=== PATIENT | male | born 1950 | race Caucasian/White ===

== ENCOUNTER 2021-05-30 17:25 | Inpatient (IN) | payer BC ==
[2021-05-30] MEDS ORDERED: Sodium Chloride 0.9% 10 ML Syringe FLUSH PRN (17:28)
[2021-05-30] MEDS ORDERED: Sodium Chloride 0.9% 2.5 ML Syringe FLUSH PRN (17:28)
[2021-05-30] MEDS ORDERED: Dexamethasone 10 MG/ML SDV IVPUSH ONE (17:30)
--- NOTE | 2021-05-30 17:34 | EDM.PDOC ---
ED HPI GENERAL MEDICAL PROBLEM - General Stated Complaint: SHORTNESS OF BREATH Time Seen by Provider: 05/30/21 17:28 Source of Information: Reports: Patient, EMS History Limitations: Reports: Respiratory Distress - History of Present Illness INITIAL COMMENTS - FREE TEXT/NARRATIVE: 71-year-old male known COVID-19 infection diagnosed on May 22 presents for worsening shortness of breath. History is limited secondary to patient's clinical condition. History is primarily from EMS. EMS was called as patient was having worsening shortness of breath and looking bad per his . On their arrival patient was with O2 sats in the 50s and unable to speak. 15 L nonrebreather mask was applied and patient's O2 sats improved to the high 80s and he was able to talk in short sentences. Patient actually denies chest pain or shortness of breath. He states he feels tired. He is alert and oriented. called and was able to provide some additional history. She notes that patient has a past medical history of prediabetes, hypertension, hyperlipidemia. She notes that they have both been struggling with Covid for the last week. Today patient is complaining of worsening generalized weakness and was having difficulty standing. After using the restroom he became incredibly weak with difficulty breathing prompting her to call EMS. - Related Data Allergies Allergy/AdvReac Type Severity Reaction Status Date / Time No Known Allergies Allergy Verified 05/30/21 17:33 Home Meds: Home Meds Aspirin [[place]] 81 mg PO DAILY 05/30/21 [History] Empagliflozin [Jardiance] 25 mg PO DAILY 05/30/21 [History] Lisinopril/Hydrochlorothiazide [Lisinopril-HCTZ 10-12.5 MG] 0.5 tab PO DAILY 05/30/21 [History] Naproxen 250 mg PO Q6H 05/30/21 [History] Pioglitazone [Actos] 30 mg PO DAILY 05/30/21 [History] atorvaSTATin [Lipitor] 40 mg PO DAILY 05/30/21 [History] metFORMIN [Glucophage XR] 100 mg PO DAILY 05/30/21 [History] ED ROS GENERAL - Review of Systems Review Of Systems: Comprehensive ROS is negative, except as noted in HPI. ED EXAM, GENERAL - Physical Exam Exam: See Below Exam Limited By: No Limitations General Appearance: Alert, WD/WN, Other (moderate respiratory distress) Ears: Hearing Grossly Normal Throat/Mouth: Normal Voice, No Airway Compromise Head: Atraumatic, Normocephalic Neck: Normal Inspection Respiratory/Chest: Lungs Clear, Normal Breath Sounds, Respiratory Distress Cardiovascular: Normal Peripheral Pulses, Regular Rate, Rhythm GI/Abdominal: Soft, Non-Tender Extremities: Normal Inspection Neurological: Alert, Oriented Psychiatric: Normal Affect, Normal Mood Skin Exam: Warm, Dry, Intact, Normal Color #1 Interpretation EKG Date: 05/30/21 Time: 17:44 Rhythm: NSR Rate (Beats/Min): 97 [place]: Normal P-Wave: Present QRS: Normal ST-T: Normal QT: Normal KS/PQ Interval: 178 Comparison: NA - No Prior EKG EKG Interpretation Comments: no acute ischemic changes Course - Vital Signs Last Recorded V/S: Last Vital Signs Temp 100.6 F 05/30/21 19:23 Pulse 93 05/30/21 19:23 Resp 20 05/30/21 19:23 BP 138/88 05/30/21 19:23 Pulse Ox 95 05/30/21 19:23 - Orders/Labs/Meds Orders: Active Orders 24 hr Category Date Time Status Cardiac Monitoring [RC] . DIRECTED Care 05/30/21 17:29 Active Pulse Oximetry [RC] ASDIRECTED Care 05/30/21 17:29 Active RT BiPAP/CPAP [RC] ASDIRECTED Care 05/30/21 18:07 Active CTA Chest W WO Contrast [Ang Chest] [CT] Stat Exams 05/30/21 18:57 Ordered CULTURE BLOOD [BC] Stat Lab 05/30/21 17:28 Received CULTURE BLOOD [BC] Stat Lab 05/30/21 17:48 Received REFLEX LACTIC ACID YES OR NO [CHEM] Routine Lab 05/30/21 18:20 Received UA W/SAM RFLX IF INDICATED [URIN] Stat Lab 05/30/21 17:29 Ordered Azithromycin [Zithromax] 500 mg Med 05/30/21 18:00 Active Sodium Chloride 0.9% [Normal Saline (AdvBag)] 250 ml IV ONETIME Enoxaparin [Lovenox] Med 05/30/21 19:37 Once 150 mg SUBCUT ONETIME ONE Sodium Chloride 0.9% [Normal Saline] 1,000 ml Med 05/30/21 19:00 Active IV ONETIME Sodium Chloride 0.9% [Saline Flush] Med 05/30/21 17:28 Active 10 ml FLUSH ASDIRECTED PRN Sodium Chloride 0.9% [Saline Flush] Med 05/30/21 17:28 Active 2.5 ml FLUSH ASDIRECTED PRN Blood Culture x2 Reflex Set [OM.PC] Stat Ot 05/30/21 17:30 Ordered Saline Lock Insert [OM.PC] Stat Ot 05/30/21 17:28 Ordered Medication Orders Azithromycin 500 mg/ Sodium (Chloride) 250 mls @ 250 mls/hr IV ONETIME JUANITO Last Admin: 05/30/21 19:36 Dose: 250 mls/hr Documented by: SHELBY Sodium Chloride (Normal Saline) 1,000 mls @ 250 mls/hr IV ONETIME ONE Stop: 05/30/21 22:59 Last Admin: 05/30/21 19:36 Dose: 250 mls/hr Documented by: SHELBY Sodium Chloride (Sodium Chloride 0.9% 10 Ml Syringe) 10 ml FLUSH ASDIRECTED PRN PRN Reason: Keep Vein Open Last Admin: 05/30/21 17:39 Dose: 10 ml Documented by: CHEY Sodium Chloride (Sodium Chloride 0.9% 2.5 Ml Syringe) 2.5 ml FLUSH ASDIRECTED PRN PRN Reason: Keep Vein Open Last Admin: 05/30/21 17:39 Dose: 2.5 ml Documented by: CHEY Labs: Laboratory Tests 05/30/21 05/30/21 05/30/21 Range/Units 17:27 17:28 17:28 WBC 15.39 H (4.0-11.0) K/uL RBC 4.89 (4.50-5.90) M/uL Hgb 14.9 (13.0-17.0) g/dL Hct 41.9 (38.0-50.0) % MCV 85.7 (80.0-98.0) fL MCH 30.5 (27.0-32.0) pg MCHC 35.6 (31.0-37.0) g/dL RDW Std Deviation 40.8 (28.0-62.0) fl RDW Coeff of Oscar 13 (11.0-15.0) % Plt Count 270 (150-400) K/uL MPV 10.60 (7.40-12.00) fL Add Manual Diff YES Neutrophils % (Manual) 80 (48.0-80.0) % Band Neutrophils % 12 % Lymphocytes % (Manual) 4 L (16.0-40.0) % Monocytes % (Manual) 4 (0.0-15.0) % Nucleated RBC % 0.3 /100WBC Absolute Seg Neuts 12.3 H (1.4-5.7) Band Neutrophils # 1.8 Lymphocytes # (Manual) 0.6 (0.6-2.4) Monocytes # (Manual) 0.6 (0.0-0.8) Nucleated RBCs # 0 K/uL INR APTT (18.6-31.3) SEC D-Dimer, Quantitative (0.0-0.50) mg/L FEU ABG pH 7.43 (7.35-7.45) ABG pCO2 19 L (35-45) mmHG ABG pO2 54 L (80-105) mmHG ABG HCO3 13 L (22-26) mEq/L ABG Total CO2 13 L (23-27) mmol/L ABG Base Excess -9.0 L (-2.0-3.0) Sodium (136-148) mmol/L Potassium (3.5-5.1) mmol/L Chloride (98-107) mmol/L Carbon Dioxide (21.0-32.0) mmol/L BUN (7.0-18.0) mg/dL Creatinine (0.8-1.3) mg/dL Est Cr Clr Drug Dosing Estimated GFR (MDRD) ml/min Glucose (74-106) mg/dL Lactic Acid 3.2 H* (0.4-2.0) mmol/L Calcium (8.5-10.1) mg/dL Magnesium (1.8-2.4) mg/dL Total Bilirubin (0.2-1.0) mg/dL AST (15-37) IU/L ALT (14-63) IU/L Alkaline Phosphatase (46-116) U/L Troponin I (0.000-0.056) ng/mL C-Reactive Protein (0.00-0.90) mg/dL B-Natriuretic Peptide (<100) PG/ML Total Protein (6.4-8.2) g/dL Albumin (3.4-5.0) g/dL Globulin (2.6-4.0) g/dL Albumin/Globulin Ratio (0.9-1.6) 05/30/21 05/30/21 05/30/21 Range/Units 17:28 17:28 17:28 WBC (4.0-11.0) K/uL RBC (4.50-5.90) M/uL Hgb (13.0-17.0) g/dL Hct (38.0-50.0) % MCV (80.0-98.0) fL MCH (27.0-32.0) pg MCHC (31.0-37.0) g/dL RDW Std Deviation (28.0-62.0) fl RDW Coeff of Oscar (11.0-15.0) % Plt Count (150-400) K/uL MPV (7.40-12.00) fL Add Manual Diff Neutrophils % (Manual) (48.0-80.0) % Band Neutrophils % % Lymphocytes % (Manual) (16.0-40.0) % Monocytes % (Manual) (0.0-15.0) % Nucleated RBC % /100WBC Absolute Seg Neuts (1.4-5.7) Band Neutrophils # Lymphocytes # (Manual) (0.6-2.4) Monocytes # (Manual) (0.0-0.8) Nucleated RBCs # K/uL INR 1.19 APTT 23.4 (18.6-31.3) SEC D-Dimer, Quantitative 63.00 H (0.0-0.50) mg/L FEU ABG pH (7.35-7.45) ABG pCO2 (35-45) mmHG ABG pO2 (80-105) mmHG ABG HCO3 (22-26) mEq/L ABG Total CO2 (23-27) mmol/L ABG Base Excess (-2.0-3.0) Sodium 132 L (136-148) mmol/L Potassium 3.5 (3.5-5.1) mmol/L Chloride 89 L (98-107) mmol/L Carbon Dioxide 17.0 L (21.0-32.0) mmol/L BUN 46 H (7.0-18.0) mg/dL Creatinine 1.2 (0.8-1.3) mg/dL Est Cr Clr Drug Dosing TNP Estimated GFR (MDRD) 59.7 ml/min Glucose 252 H (74-106) mg/dL Lactic Acid (0.4-2.0) mmol/L Calcium 9.0 (8.5-10.1) mg/dL Magnesium 2.9 H (1.8-2.4) mg/dL Total Bilirubin 0.7 (0.2-1.0) mg/dL AST 107 H (15-37) IU/L ALT 79 H (14-63) IU/L Alkaline Phosphatase 133 H (46-116) U/L Troponin I < 0.050 (0.000-0.056) ng/mL C-Reactive Protein 10.60 H (0.00-0.90) mg/dL B-Natriuretic Peptide 72 (<100) PG/ML Total Protein 7.4 (6.4-8.2) g/dL Albumin 3.0 L (3.4-5.0) g/dL Globulin 4.4 H (2.6-4.0) g/dL Albumin/Globulin Ratio 0.7 L (0.9-1.6) Meds: Medications Generic Name Dose Route Start Last Admin Trade Name Freq PRN Reason Stop Dose Admin Azithromycin 500 mg/ Sodium 250 mls @ 250 mls/hr 05/30/21 18:00 05/30/21 19:36 Chloride IV 250 mls/hr ONETIME JUANITO Administration Sodium Chloride 1,000 mls @ 250 mls/hr 05/30/21 19:00 05/30/21 19:36 Normal Saline IV 05/30/21 22:59 250 mls/hr ONETIME ONE Administration Sodium Chloride 10 ml 05/30/21 17:28 05/30/21 17:39 Sodium Chloride 0.9% 10 Ml Syringe FLUSH 10 ml ASDIRECTED PRN Administration Keep Vein Open Sodium Chloride 2.5 ml 05/30/21 17:28 05/30/21 17:39 Sodium Chloride 0.9% 2.5 Ml Syringe FLUSH 2.5 ml ASDIRECTED PRN Administration Keep Vein Open Discontinued Medications Generic Name Dose Route Start Last Admin Trade Name Freq PRN Reason Stop Dose Admin Dexamethasone 6 mg 05/30/21 17:30 05/30/21 17:37 Dexamethasone 10 Mg/Ml Sdv IVPUSH 05/30/21 17:31 6 mg ONETIME ONE Administration Ceftriaxone Sodium/Dextrose 1 50 mls @ 100 mls/hr 05/30/21 17:59 05/30/21 18:34 gm/ Premix IV 05/30/21 18:28 100 mls/hr ONETIME ONE Administration - Re-Assessments/Exams Free Text/Narrative Re-Assessment/Exam: 05/30/21 17:33 Patient presents with hypoxic respiratory failure in setting of known Covid infection. Will get extensive labs and chest x-ray. An ABG was drawn while patient was on 15 L nonrebreather mask. Patient's O2 sats are 80 to 88% on the nonrebreather. Will start patient on BiPAP. Will give Decadron. 05/30/21 17:51 Patient is looking better on BiPAP; he tolerates it well. We are reaching out to his to try and gather more history. When asked about PMHx, patient states he takes "a lot of pills" but doesn't know what pills or what they're for. 05/30/21 18:00 Labs revealed leukocytosis to 15. Will give ceftriaxone and azithromycin for potential bacterial superinfection. 05/30/21 19:37 Labs reveal leukocytosis, mild YELENA, significantly elevated D-dimer, mild hyponatremia. Patient is not stable enough to tolerate CT imaging as he is requiring BiPAP to maintain normal oxygenation. We will give him a therapeutic dose of Lovenox. I did speak with the hospitalist who agrees to admit patient under her service to ICU level care. Departure - Departure Time of Disposition: 19:38 Disposition: Admitted As Inpatient 66 Condition: Critical Clinical Impression: COVID - Discharge Information Critical Care Note - Critical Care Note Total Time (mins): 40 Sepsis Event Note (ED) - Focused Exam Vital Signs: Vital Signs Temp Pulse Resp BP Pulse Ox 05/30/21 19:23 100.6 F 93 20 138/88 95 05/30/21 17:34 105 H 18 143/86 H 84 L - My Orders Last 24 Hours: My Active Orders 05/30/21 17:28 CULTURE BLOOD [BC] Stat Sodium Chloride 0.9% [Saline Flush] 10 ml FLUSH ASDIRECTED PRN Sodium Chloride 0.9% [Saline Flush] 2.5 ml FLUSH ASDIRECTED PRN Saline Lock Insert [OM.PC] Stat 05/30/21 17:29 Cardiac Monitoring [RC] . DIRECTED Pulse Oximetry [RC] ASDIRECTED UA W/SAM RFLX IF INDICATED [URIN] Stat 05/30/21 17:30 Blood Culture x2 Reflex Set [OM.PC] Stat 05/30/21 17:48 CULTURE BLOOD [BC] Stat 05/30/21 18:00 Azithromycin [Zithromax] 500 mg Sodium Chloride 0.9% [Normal Saline (AdvBag)] 250 ml IV ONETIME 05/30/21 18:07 RT BiPAP/CPAP [RC] ASDIRECTED 05/30/21 18:20 REFLEX LACTIC ACID YES OR NO [CHEM] Routine 05/30/21 18:57 CTA Chest W WO Contrast [Ang Chest] [CT] Stat 05/30/21 19:00 Sodium Chloride 0.9% [Normal Saline] 1,000 ml IV ONETIME 05/30/21 19:37 Enoxaparin [Lovenox] 150 mg SUBCUT ONETIME ONE - Assessment/Plan Last 24 Hours: My Active Orders 05/30/21 17:28 CULTURE BLOOD [BC] Stat Sodium Chloride 0.9% [Saline Flush] 10 ml FLUSH ASDIRECTED PRN Sodium Chloride 0.9% [Saline Flush] 2.5 ml FLUSH ASDIRECTED PRN Saline Lock Insert [OM.PC] Stat 05/30/21 17:29 Cardiac Monitoring [RC] . DIRECTED Pulse Oximetry [RC] ASDIRECTED UA W/SAM RFLX IF INDICATED [URIN] Stat 05/30/21 17:30 Blood Culture x2 Reflex Set [OM.PC] Stat 05/30/21 17:48 CULTURE BLOOD [BC] Stat 05/30/21 18:00 Azithromycin [Zithromax] 500 mg Sodium Chloride 0.9% [Normal Saline (AdvBag)] 250 ml IV ONETIME 05/30/21 18:07 RT BiPAP/CPAP [RC] ASDIRECTED 05/30/21 18:20 REFLEX LACTIC ACID YES OR NO [CHEM] Routine 05/30/21 18:57 CTA Chest W WO Contrast [Ang Chest] [CT] Stat 05/30/21 19:00 Sodium Chloride 0.9% [Normal Saline] 1,000 ml IV ONETIME 05/30/21 19:37 Enoxaparin [Lovenox] 150 mg SUBCUT ONETIME ONE
[2021-05-30] MEDS ORDERED: cefTRIAXone 1 GM in Premix Bag 1 BAG IV ONE (17:59)
[2021-05-30] MEDS ORDERED: Azithromycin 500 MG in Sodium Chloride 0.9% 250 ML IV SCH (18:00)
[2021-05-30 18:15] LABS: BLOOD UREA NITROGEN,BUN 46 mg/dL (7.0-18.0); CHLORIDE,CL 89 mmol/L (98-107); GLUCOSE RANDOM 252 mg/dL (74-106); POTASSIUM,K 3.5 mmol/L (3.5-5.1); SODIUM,NA 132 mmol/L (136-148)
--- NOTE | 2021-05-30 18:25 | CR ---
INDICATION: COVID-19. Hypoxic TECHNIQUE: Chest radiograph 1 view COMPARISON: None FINDINGS: The sensitivity and specificity of the exam are moderately limited by the patient`s body habitus. Mediastinum: The mediastinum is normal in appearance. Severe cardiac enlargement is noted. Lung: Mild perihilar ground-glass opacities are noted bilaterally. No sign of pleural effusion seen. No pneumothorax is identified. Bone and Soft tissue: Unremarkable for age. IMPRESSIONS: 1. Severe cardiac enlargement is noted. 2. Mild perihilar ground-glass opacities are noted bilaterally. Findings may be due to COVID-19 infection or pulmonary edema. Dictated by Huan Alejandro MD @ 05/30/2021 6:23:22 PM Dictated by: Huan Alejandro MD @ 05/30/2021 18:23:28 (Electronically Signed)
[2021-05-30] MEDS ORDERED: Sodium Chloride 0.9% 1,000 ML IV ONE (19:00)
[2021-05-30] MEDS ORDERED: Enoxaparin 150 MG/1 ML Syringe SUBCUT ONE (19:37)
[2021-05-30] MEDS ORDERED: Ondansetron 4 MG/2 ML SDV IVPUSH PRN (20:25)
[2021-05-30] MEDS ORDERED: REMDESIVIR 200 MG in Sodium Chloride 0.9% 250 ML IV ONE (20:33)
[2021-05-30] MEDS ORDERED: Glucagon,Human Recombinant 1 MG Vial IM PRN (20:36)
[2021-05-30] MEDS ORDERED: 50% Dextrose in Water 50 ML Syringe IVPUSH PRN (20:36)
--- NOTE | 2021-05-30 20:41 | PCM.HP.2 ---
H&P History of Present Illness - General Date of Service: 05/30/21 Admit Problem/Dx: Admission Diagnosis/Problem Admission Diagnosis/Problem Hypoxia - History of Present Illness Initial Comments - Free Text/Narative: 71-year-old male known COVID-19 infection diagnosed on May 22 presents for worsening shortness of breath. patient has a past medical history of prediabetes, hypertension, hyperlipidemia. EMS was called as patient was having worsening shortness of breath and looking bad per his . On their arrival patient was with O2 sats in the 50s and unable to speak. 15 L nonrebreather mask was applied and patient's O2 sats improved to the high 80s and he was able to talk in short sentences. Denied chest pain. In the ER patient was started on 15 L nonrebreather and sats were between 80 to 88% on nonrebreather, patient was started on BiPAP which improved his saturation. Chest x-ray was obtained which showed severe cardiac enlargement, mild perihilar groundglass opacities noted bilaterally findings may be due to COVID-19 infection or pulmonary edema.laas Patient was given Decadron in the ER and also started on IV antibiotics for suspected bacterial pneumonia superimposed on Covid pneumonia. Lab work revealed leukocytosis of 15, mild YELENA, significantly elevated D-dimer and mild hyponatremia, CTA was not obtained as patient was not stable enough for CT and patient could not be weaned off to high flow to obtain imaging safely. Patient was given therapeutic dose of Lovenox and admitted to the ICU for further care. During my encounter patient was getting very anxious and claustrophobic with BiPAP, so settings were switched to CPAP patient still very anxious with the mask on states he feels very claustrophobic. - Related Data Allergies/Adverse Reactions: Allergies Allergy/AdvReac Type Severity Reaction Status Date / Time No Known Allergies Allergy Verified 05/30/21 17:33 Home Medications: Home Meds Aspirin [[place]] 81 mg PO DAILY 05/30/21 [History] Empagliflozin [Jardiance] 25 mg PO DAILY 05/30/21 [History] Lisinopril/Hydrochlorothiazide [Lisinopril-HCTZ 10-12.5 MG] 0.5 tab PO DAILY 05/30/21 [History] Naproxen 250 mg PO Q6H 05/30/21 [History] Pioglitazone [Actos] 30 mg PO DAILY 05/30/21 [History] atorvaSTATin [Lipitor] 40 mg PO DAILY 05/30/21 [History] metFORMIN [Glucophage XR] 100 mg PO DAILY 05/30/21 [History] Past Medical History - Infectious Disease History Infectious Disease History: Reports: None Social & Family History - Tobacco Use Tobacco Use Status *Q: Unknown Ever Used Tobacco H&P Review of Systems - Review of Systems: Review Of Systems: See Below General: Reports: Fever, Chills, Malaise Pulmonary: Reports: Shortness of Breath. Denies: Wheezing, Pleuritic Chest Pain Cardiovascular: Reports: Dyspnea on Exertion. Denies: Chest Pain Gastrointestinal: Reports: Anorexia, Decreased Appetite, Nausea. Denies: Abdominal Pain, Black Stool, Bloody Stool, Constipation, Diarrhea Genitourinary: Denies: Dysuria, Frequency, Burning Musculoskeletal: Denies: Neck Pain, Shoulder Pain, Arm Pain Skin: Denies: Cyanosis, Jaundice, Mottled Psychiatric: Reports: Anxiety. Denies: Confusion, Depression, Mood Lability Exam - Exam Exam: See Below - Vital Signs Vital Signs: Last Vital Signs Temp 38.1 C 05/30/21 19:23 Pulse 93 05/30/21 19:23 Resp 20 05/30/21 19:23 BP 138/88 05/30/21 19:23 Pulse Ox 95 05/30/21 19:23 Weight: 91.6 kg - Exam Quality Assessment: Supplemental Oxygen Neck: Supple, Trachea Midline Lungs: Normal Respiratory Effort, Decreased Breath Sounds, Crackles, Rales, Wheezing Cardiovascular: Regular Rate, Regular Rhythm, Normal S1, Normal S2 GI/Abdominal Exam: Normal Bowel Sounds, Soft, Non-Tender - Patient Data Lab Results Last 24 hrs: Laboratory Results - last 24 hr 05/30/21 05/30/21 05/30/21 Range/Units 17:27 17:28 17:28 WBC 15.39 H (4.0-11.0) K/uL RBC 4.89 (4.50-5.90) M/uL Hgb 14.9 (13.0-17.0) g/dL Hct 41.9 (38.0-50.0) % MCV 85.7 (80.0-98.0) fL MCH 30.5 (27.0-32.0) pg MCHC 35.6 (31.0-37.0) g/dL RDW Std Deviation 40.8 (28.0-62.0) fl RDW Coeff of Oscar 13 (11.0-15.0) % Plt Count 270 (150-400) K/uL MPV 10.60 (7.40-12.00) fL Add Manual Diff YES Neutrophils % (Manual) 80 (48.0-80.0) % Band Neutrophils % 12 % Lymphocytes % (Manual) 4 L (16.0-40.0) % Monocytes % (Manual) 4 (0.0-15.0) % Nucleated RBC % 0.3 /100WBC Absolute Seg Neuts 12.3 H (1.4-5.7) Band Neutrophils # 1.8 Lymphocytes # (Manual) 0.6 (0.6-2.4) Monocytes # (Manual) 0.6 (0.0-0.8) Nucleated RBCs # 0 K/uL INR APTT (18.6-31.3) SEC D-Dimer, Quantitative (0.0-0.50) mg/L FEU ABG pH 7.43 (7.35-7.45) ABG pCO2 19 L (35-45) mmHG ABG pO2 54 L (80-105) mmHG ABG HCO3 13 L (22-26) mEq/L ABG Total CO2 13 L (23-27) mmol/L ABG Base Excess -9.0 L (-2.0-3.0) Sodium (136-148) mmol/L Potassium (3.5-5.1) mmol/L Chloride (98-107) mmol/L Carbon Dioxide (21.0-32.0) mmol/L BUN (7.0-18.0) mg/dL Creatinine (0.8-1.3) mg/dL Est Cr Clr Drug Dosing Estimated GFR (MDRD) ml/min Glucose (74-106) mg/dL Lactic Acid 3.2 H* (0.4-2.0) mmol/L Calcium (8.5-10.1) mg/dL Magnesium (1.8-2.4) mg/dL Total Bilirubin (0.2-1.0) mg/dL AST (15-37) IU/L ALT (14-63) IU/L Alkaline Phosphatase (46-116) U/L Troponin I (0.000-0.056) ng/mL C-Reactive Protein (0.00-0.90) mg/dL B-Natriuretic Peptide (<100) PG/ML Total Protein (6.4-8.2) g/dL Albumin (3.4-5.0) g/dL Globulin (2.6-4.0) g/dL Albumin/Globulin Ratio (0.9-1.6) Urine Color Urine Appearance Urine pH (5.0-8.0) Ur Specific [place] (1.001-1.035) Urine Protein (NEGATIVE) mg/dL Urine Glucose (UA) (NEGATIVE) mg/dL Urine Ketones (NEGATIVE) mg/dL Urine Occult Blood (NEGATIVE) Urine Nitrite (NEGATIVE) Urine Bilirubin (NEGATIVE) Urine Ictotest Urine Urobilinogen (<2.0) EU/dL Ur Leukocyte Esterase (NEGATIVE) Urine RBC (0-2/HPF) Urine WBC (0-5/HPF) Ur Epithelial Cells (NONE-FEW) Urine Bacteria (NEGATIVE) 05/30/21 05/30/21 05/30/21 Range/Units 17:28 17:28 17:28 WBC (4.0-11.0) K/uL RBC (4.50-5.90) M/uL Hgb (13.0-17.0) g/dL Hct (38.0-50.0) % MCV (80.0-98.0) fL MCH (27.0-32.0) pg MCHC (31.0-37.0) g/dL RDW Std Deviation (28.0-62.0) fl RDW Coeff of Oscar (11.0-15.0) % Plt Count (150-400) K/uL MPV (7.40-12.00) fL Add Manual Diff Neutrophils % (Manual) (48.0-80.0) % Band Neutrophils % % Lymphocytes % (Manual) (16.0-40.0) % Monocytes % (Manual) (0.0-15.0) % Nucleated RBC % /100WBC Absolute Seg Neuts (1.4-5.7) Band Neutrophils # Lymphocytes # (Manual) (0.6-2.4) Monocytes # (Manual) (0.0-0.8) Nucleated RBCs # K/uL INR 1.19 APTT 23.4 (18.6-31.3) SEC D-Dimer, Quantitative 63.00 H (0.0-0.50) mg/L FEU ABG pH (7.35-7.45) ABG pCO2 (35-45) mmHG ABG pO2 (80-105) mmHG ABG HCO3 (22-26) mEq/L ABG Total CO2 (23-27) mmol/L ABG Base Excess (-2.0-3.0) Sodium 132 L (136-148) mmol/L Potassium 3.5 (3.5-5.1) mmol/L Chloride 89 L (98-107) mmol/L Carbon Dioxide 17.0 L (21.0-32.0) mmol/L BUN 46 H (7.0-18.0) mg/dL Creatinine 1.2 (0.8-1.3) mg/dL Est Cr Clr Drug Dosing TNP Estimated GFR (MDRD) 59.7 ml/min Glucose 252 H (74-106) mg/dL Lactic Acid (0.4-2.0) mmol/L Calcium 9.0 (8.5-10.1) mg/dL Magnesium 2.9 H (1.8-2.4) mg/dL Total Bilirubin 0.7 (0.2-1.0) mg/dL AST 107 H (15-37) IU/L ALT 79 H (14-63) IU/L Alkaline Phosphatase 133 H (46-116) U/L Troponin I < 0.050 (0.000-0.056) ng/mL C-Reactive Protein 10.60 H (0.00-0.90) mg/dL B-Natriuretic Peptide 72 (<100) PG/ML Total Protein 7.4 (6.4-8.2) g/dL Albumin 3.0 L (3.4-5.0) g/dL Globulin 4.4 H (2.6-4.0) g/dL Albumin/Globulin Ratio 0.7 L (0.9-1.6) Urine Color Urine Appearance Urine pH (5.0-8.0) Ur Specific [place] (1.001-1.035) Urine Protein (NEGATIVE) mg/dL Urine Glucose (UA) (NEGATIVE) mg/dL Urine Ketones (NEGATIVE) mg/dL Urine Occult Blood (NEGATIVE) Urine Nitrite (NEGATIVE) Urine Bilirubin (NEGATIVE) Urine Ictotest Urine Urobilinogen (<2.0) EU/dL Ur Leukocyte Esterase (NEGATIVE) Urine RBC (0-2/HPF) Urine WBC (0-5/HPF) Ur Epithelial Cells (NONE-FEW) Urine Bacteria (NEGATIVE) 05/30/21 Range/Units 20:02 WBC (4.0-11.0) K/uL RBC (4.50-5.90) M/uL Hgb (13.0-17.0) g/dL Hct (38.0-50.0) % MCV (80.0-98.0) fL MCH (27.0-32.0) pg MCHC (31.0-37.0) g/dL RDW Std Deviation (28.0-62.0) fl RDW Coeff of Oscar (11.0-15.0) % Plt Count (150-400) K/uL MPV (7.40-12.00) fL Add Manual Diff Neutrophils % (Manual) (48.0-80.0) % Band Neutrophils % % Lymphocytes % (Manual) (16.0-40.0) % Monocytes % (Manual) (0.0-15.0) % Nucleated RBC % /100WBC Absolute Seg Neuts (1.4-5.7) Band Neutrophils # Lymphocytes # (Manual) (0.6-2.4) Monocytes # (Manual) (0.0-0.8) Nucleated RBCs # K/uL INR APTT (18.6-31.3) SEC D-Dimer, Quantitative (0.0-0.50) mg/L FEU ABG pH (7.35-7.45) ABG pCO2 (35-45) mmHG ABG pO2 (80-105) mmHG ABG HCO3 (22-26) mEq/L ABG Total CO2 (23-27) mmol/L ABG Base Excess (-2.0-3.0) Sodium (136-148) mmol/L Potassium (3.5-5.1) mmol/L Chloride (98-107) mmol/L Carbon Dioxide (21.0-32.0) mmol/L BUN (7.0-18.0) mg/dL Creatinine (0.8-1.3) mg/dL Est Cr Clr Drug Dosing Estimated GFR (MDRD) ml/min Glucose (74-106) mg/dL Lactic Acid (0.4-2.0) mmol/L Calcium (8.5-10.1) mg/dL Magnesium (1.8-2.4) mg/dL Total Bilirubin (0.2-1.0) mg/dL AST (15-37) IU/L ALT (14-63) IU/L Alkaline Phosphatase (46-116) U/L Troponin I (0.000-0.056) ng/mL C-Reactive Protein (0.00-0.90) mg/dL B-Natriuretic Peptide (<100) PG/ML Total Protein (6.4-8.2) g/dL Albumin (3.4-5.0) g/dL Globulin (2.6-4.0) g/dL Albumin/Globulin Ratio (0.9-1.6) Urine Color YELLOW Urine Appearance CLEAR Urine pH 6.0 (5.0-8.0) Ur Specific [place] 1.015 (1.001-1.035) Urine Protein 30 H (NEGATIVE) mg/dL Urine Glucose (UA) >=1000 (NEGATIVE) mg/dL Urine Ketones >=80 (NEGATIVE) mg/dL Urine Occult Blood SMALL H (NEGATIVE) Urine Nitrite NEGATIVE (NEGATIVE) Urine Bilirubin SMALL H (NEGATIVE) Urine Ictotest NEGATIVE Urine Urobilinogen 0.2 (<2.0) EU/dL Ur Leukocyte Esterase NEGATIVE (NEGATIVE) Urine RBC 0-2 (0-2/HPF) Urine WBC 0-2 (0-5/HPF) Ur Epithelial Cells RARE (NONE-FEW) Urine Bacteria FEW (NEGATIVE) Result Diagrams: 05/30/21 17:28 05/30/21 17:28 Sepsis Event Note - Evaluation Sepsis Screening Result: Possible Sepsis Risk - Focused Exam Vital Signs: Vital Signs Temp Pulse Resp BP Pulse Ox 05/30/21 19:23 38.1 C 93 20 138/88 95 05/30/21 17:34 105 H 18 143/86 H 84 L - Problem List (1) Acute hypoxemic respiratory failure due to COVID-19 SNOMED Code(s): 510885044 ICD Code: U07.1 - COVID-19; J96.01 - ACUTE RESPIRATORY FAILURE WITH HYPOXIA Status: Acute Current Visit: Yes (2) COVID SNOMED Code(s): 951167711 ICD Code: U07.1 - COVID-19 Status: Acute Current Visit: Yes (3) HTN (hypertension) SNOMED Code(s): 69269704 ICD Code: I10 - ESSENTIAL (PRIMARY) HYPERTENSION Status: Acute Current Visit: Yes (4) Diabetes mellitus SNOMED Code(s): 78153137 ICD Code: E11.9 - TYPE 2 DIABETES MELLITUS WITHOUT COMPLICATIONS Status: Acute Current Visit: Yes Problem List Initiated/Reviewed/Updated: Yes Orders Last 24hrs: Active Orders 24 hr Category Date Time Status Patient Status [ADT] Routine ADT 05/30/21 20:19 Active Ambulate [RC] ASDIRECTED Care 05/30/21 20:25 Active Antiembolic Devices [RC] PER UNIT ROUTINE Care 05/30/21 20:31 Active Cardiac Monitoring [RC] . DIRECTED Care 05/30/21 17:29 Active Oxygen Therapy [RC] PRN Care 05/30/21 20:30 Active Pulse Oximetry [RC] ASDIRECTED Care 05/30/21 17:29 Active Pulse Oximetry [RC] CONTINUOUS Care 05/30/21 20:31 Active RT Aerosol Therapy [RC] ASDIRECTED Care 05/30/21 20:32 Active RT BiPAP/CPAP [RC] ASDIRECTED Care 05/30/21 18:07 Active VTE/DVT Education [RC] PER UNIT ROUTINE Care 05/30/21 20:30 Active Vital Signs [RC] Q4H Care 05/30/21 20:30 Active ADA Diabetic [[place] [employer] Diet] [DIET Diet 05/31/21 Breakfast Active ] CTA Chest W WO Contrast [Ang Chest] [CT] Stat Exams 05/30/21 18:57 Stop Req CBC WITH AUTO DIFF [HEME] AM Lab 05/31/21 05:11 Ordered CMP [COMPREHENSIVE METABOLIC PN,CMP] [CHEM] AM Lab 05/31/21 05:11 Ordered CULTURE BLOOD [BC] Stat Lab 05/30/21 17:28 Received CULTURE BLOOD [BC] Stat Lab 05/30/21 17:48 Received MAGNESIUM [CHEM] AM Lab 05/31/21 05:11 Ordered PHOSPHORUS [CHEM] AM Lab 05/31/21 05:11 Ordered REFLEX LACTIC ACID YES OR NO [CHEM] Routine Lab 05/30/21 18:20 Received Albuterol/Ipratropium [DuoNeb 3.0-0.5 MG/3 ML] Med 05/30/21 22:00 Active 3 ml NEB Q4HRRT Azithromycin [Zithromax] Med 05/31/21 09:00 Active 250 mg IV Q24H Azithromycin [Zithromax] 500 mg Med 05/30/21 18:00 Active Sodium Chloride 0.9% [Normal Saline (AdvBag)] 250 ml IV ONETIME Dextrose 50% in Water Med 05/30/21 20:36 Active 50 ml IVPUSH ASDIRECTED PRN Enoxaparin [Lovenox] Med 05/31/21 12:00 Active 90 mg SUBCUT BID Glucagon,Human Recombinant [GlucaGen] Med 05/30/21 20:36 Active 1 mg IM ASDIRECTED PRN Insulin Aspart [NovoLOG] Med 05/31/21 07:30 Active See Protocol SUBCUT TIDAC Ondansetron [Zofran] Med 05/30/21 20:25 Active 4 mg IVPUSH Q4H PRN Pantoprazole [ProTONIX IV] Med 05/31/21 09:00 Active 40 mg IV DAILY Remdesivir 100 mg Med 05/31/21 09:00 Active Sodium Chloride 0.9% [Normal Saline] 100 ml IV Q24H Sodium Chloride 0.9% [Normal Saline] 1,000 ml Med 05/30/21 19:00 Active IV ONETIME Sodium Chloride 0.9% [Saline Flush] Med 05/30/21 17:28 Active 10 ml FLUSH ASDIRECTED PRN Sodium Chloride 0.9% [Saline Flush] Med 05/30/21 17:28 Active 2.5 ml FLUSH ASDIRECTED PRN cefTRIAXone [Rocephin in Dextrose,Iso-Osm 1 GM/50 ML] 1 Med 05/31/21 09:00 Active gm Premix Bag 1 bag IV Q24H dexAMETHasone [Decadron] Med 05/31/21 09:00 Active 6 mg IVPUSH DAILY Blood Culture x2 Reflex Set [OM.PC] Stat Oth 05/30/21 17:30 Ordered Saline Lock Insert [OM.PC] Stat Oth 05/30/21 17:28 Ordered Sequential Compression Device [OM.PC] Per Unit Routine Oth 05/30/21 20:31 Ordered Resuscitation Status Routine Resus Stat 05/30/21 20:25 Ordered Medication Orders Albuterol/Ipratropium (Albuterol/Ipratropium 3.0-0.5 Mg/3 Ml Neb Soln) 3 ml NEB Q4HRRT [facility] Azithromycin (Azithromycin 500 Mg Vial) 250 mg IV Q24H [facility] Dexamethasone (Dexamethasone 4 Mg/Ml Sdv) 6 mg IVPUSH DAILY [facility] Dextrose/Water (50% Dextrose In Water 50 Ml Syringe) 50 ml IVPUSH ASDIRECTED PRN PRN Reason: Hypoglycemia Enoxaparin Sodium (Enoxaparin 40 Mg/0.4 Ml Syringe) 90 mg SUBCUT BID [facility] Glucagon (Glucagon,Human Recombinant 1 Mg Vial) 1 mg IM ASDIRECTED PRN PRN Reason: Hypoglycemia Azithromycin 500 mg/ Sodium (Chloride) 250 mls @ 250 mls/hr IV ONETIME [facility] Last Admin: 05/30/21 19:36 Dose: 250 mls/hr Documented by: SHELBY Sodium Chloride (Normal Saline) 1,000 mls @ 250 mls/hr IV ONETIME ONE Stop: 05/30/21 22:59 Last Admin: 05/30/21 19:36 Dose: 250 mls/hr Documented by: SHELBY Remdesivir 100 mg/ Sodium (Chloride) 100 mls @ 100 mls/hr IV Q24H [facility] Stop: 06/03/21 09:59 Ceftriaxone Sodium/Dextrose 1 (gm/ Premix) 50 mls @ 100 mls/hr IV Q24H [facility] Insulin Aspart (Insulin Aspart 100 Units/Ml 3 Ml Pen) 0 unit SUBCUT TIDAC [facility]; Protocol Ondansetron HCl (Ondansetron 4 Mg/2 Ml Sdv) 4 mg IVPUSH Q4H PRN PRN Reason: Nausea/Vomiting Pantoprazole Sodium (Pantoprazole 40 Mg Vial) 40 mg IV DAILY [facility] Sodium Chloride (Sodium Chloride 0.9% 10 Ml Syringe) 10 ml FLUSH ASDIRECTED PRN PRN Reason: Keep Vein Open Last Admin: 05/30/21 17:39 Dose: 10 ml Documented by: CHEY Sodium Chloride (Sodium Chloride 0.9% 2.5 Ml Syringe) 2.5 ml FLUSH ASDIRECTED PRN PRN Reason: Keep Vein Open Last Admin: 05/30/21 17:39 Dose: 2.5 ml Documented by: CHEY Assessment/Plan Comment:: 71-year-old male admitted for acute hypoxic respiratory failure secondary to Covid pneumonia We will start patient on IV remdesivir, Decadron, Lovenox for DVT prophylaxis, Combivent as needed continue, DuSuhas scheduled oxygen support via noninvasive ventilation Start patient on IV azithromycin and Rocephin IV Zofran for nausea IV PPI for ulcer prophylaxis Monitor and replete electrolytes as needed Guaifenesin for cough as needed Diabetic diet Sliding scale insulin Increase incentive spirometry and proning
[2021-05-30] MEDS: Albuterol/Ipratropium 3.0-0.5 MG/3 ML Neb Soln NEB SCH (21:51)
[2021-05-30] MEDS ORDERED: LORazepam 2 MG/ML SDV IVPUSH ONE (22:13)
--- NOTE | 2021-05-30 22:55 | PN ---
THC Physician - Brief Progress [id number]/01/2021 22:47[facility] Karol duke, [facility] - [facility] JOSELYN CORLEY, Covid +Date of Service 05/30/2021 22:47H PI/Events of Note Case discussed with RN. 71 year old M with afib admitted with COVID PNA. Treated with HHF/BiPAP, decadron/remdesivir/abx.Recs include: hemodynamic monitoring, AC per primary service, HHF/BiPAP PRN, encourage self proning as tolerated, decadron/remdesivir/abx, GI and DVT prophylaxis, follow cultures, replace lytes as needed, glycemic monitoring, pain control, neuro checks.Interventi ons Minor-Communication with other healthcare providers and/or family
[2021-05-30] MEDS ORDERED: Furosemide 40 MG/4 ML VIAL IVPUSH ONE (23:56)
[2021-05-31] MEDS ORDERED: diphenhydrAMINE 50 MG/ML SDV IVPUSH ONE ×2 (01:00→15:02)
[2021-05-31] MEDS ORDERED: Haloperidol Lactate 5 MG/ML SDV IM ONE ×2 (01:00→15:03)
--- NOTE | 2021-05-31 01:44 | PN ---
THC Physician - Brief Progress [id number]/02/2021 01:43[facility] Karol duke [place] - RADHA ([place]) - JOSELYN JACKSON Covid +Date of Service 05/31/2021 01:43H PI/Events of Note Rerstraints ordered for pt safety.Interventions Minor-Communication with other [facility] thcare providers and/or family
[2021-05-31] MEDS: Albuterol/Ipratropium 3.0-0.5 MG/3 ML Neb Soln NEB SCH ×6 (01:54→21:27)
[2021-05-31 07:01] LABS: BLOOD UREA NITROGEN,BUN 41 mg/dL (7.0-18.0); CARBON DIOXIDE,CO2 19.4 mmol/L (21.0-32.0); CHLORIDE,CL 94 mmol/L (98-107); GLUCOSE RANDOM 291 mg/dL (74-106); POTASSIUM,K 3.1 mmol/L (3.5-5.1); SODIUM,NA 135 mmol/L (136-148)
[2021-05-31] MEDS: Pantoprazole 40 MG in Sodium Chloride 0.9% 10 ML IV SCH (08:42)
[2021-05-31] MEDS: Insulin Aspart 100 Units/ML 3 ML Pen SUBCUT SCH ×3 (08:43→17:09)
[2021-05-31] MEDS: Aspirin 81 MG Tab.EC PO SCH (08:43)
[2021-05-31] MEDS: Lisinopril/Hydrochlorothiazide 10-12.5 MG Tab PO SCH (08:43)
[2021-05-31] MEDS: atorvaSTATin 40 MG Tab PO SCH (08:44)
[2021-05-31] MEDS: Dexamethasone 4 MG/ML SDV IVPUSH SCH (08:44)
--- NOTE | 2021-05-31 08:50 | PN ---
THC Physician - Brief Progress [id number]/02/2021 08:43[facility] Karol Tatum, [place] - RADHA ([place]) - JOSELYN JACKSON, Covid +Date of Service 05/31/2021 08:43H PI/Events of Note eICU -[id number] male currently with the ICU for acute hypoxic respiratory fa ilure secondary to COVID-19. Overnight patient continues to have delirium and continues to remove hi s mask despite being told multiple times risks of hypoxia. No other acute events noted overnight.Shima granger seen on camera, currently turned to his left side, nursing staff and pain medications to adminis ter for delirium.Vital signs reviewedLab/EMR reviewedAcute hypoxic respiratory failureCOVID-19Acute e ncephalopathyRecommendation-Agree with Covid treatment with Decadron/remdesivir-Patient currently on CAP coverage. Recommend obtaining procalcitonin to help [id number] with bedside team in regar ds to treating delirium, recommend initiating Precedex if patient is able to tolerate without hemodyn amic issues.-If patient continues to remove HHF or BiPAP recommend proceeding with intubation to avoi d prolonged periods of hypoxemia-We will defer Lovenox dosing to bedside team.-Recommend keeping radha ent euvolemic as much as possible-Given delirium patient unlikely to follow commands but if possible recommend prone position.Interventions Major-Hypoxemia - evaluation and management, Infection - evalu ation and management, Respiratory failure - evaluation and management
[2021-05-31] MEDS ORDERED: Azithromycin 500 MG Vial IV SCH (09:00)
[2021-05-31] MEDS ORDERED: Pantoprazole 40 MG Vial IV SCH (09:00)
[2021-05-31] MEDS ORDERED: Potassium Chloride 20 MEQ Tab.ER PO ONE (09:27)
[2021-05-31] MEDS ORDERED: Furosemide 20 MG/2 ML VIAL IVPUSH ONE (10:11)
[2021-05-31] MEDS ORDERED: LORazepam 2 MG/ML SDV IVPUSH ONE (11:02)
[2021-05-31] MEDS ORDERED: Enoxaparin 40 MG/0.4 ML Syringe SUBCUT SCH (12:00)
[2021-05-31] MEDS: Enoxaparin 100 MG/1 ML Syringe SUBCUT SCH ×2 (12:46→20:19)
--- NOTE | 2021-05-31 13:49 | PCM.PN ---
- General Info Date of Service: 05/31/21 Admission Dx/Problem (Free Text): Admission Diagnosis/Problem Admission Diagnosis/Problem Hypoxia Subjective Update: Patient seen at bedside, patient seems confused, had taken out his BiPAP and was trying to drink water. Patient was redirected and it was reiterated to him that he cannot remove his mask. Patient expressed understanding will seem to be very depressed. Patient states that he just wants to go home. Overnight patient has been trying to take off his nasal cannula and BiPAP of in spite of constant redirection, patient had to get some Haldol and Ativan to calm him down. Patient had refused Ruffin catheter last night this morning bedside nurse was able to convince him to let us put the Ruffin in. - Review of Systems General: Reports: Weakness, Fatigue, Malaise. Denies: Fever Pulmonary: Reports: Shortness of Breath, Cough, Sputum Cardiovascular: Reports: Dyspnea on Exertion. Denies: Chest Pain, Palpitations Gastrointestinal: Reports: Decreased Appetite. Denies: Abdominal Pain, Constip ation, Diarrhea, Difficulty Swallowing, Nausea, Vomiting Genitourinary: Denies: Dysuria, Frequency, Burning Musculoskeletal: Denies: Neck Pain, Shoulder Pain, Arm Pain Skin: Denies: Cyanosis, Jaundice, Mottled Neurological: Denies: Confusion, Dizziness, Headache, Numbness - Patient Data Vitals - Most Recent: Last Vital Signs Temp 36.5 C 05/31/21 08:00 Pulse 88 05/31/21 07:00 Resp 21 H 05/31/21 11:00 BP 109/64 05/31/21 11:00 Pulse Ox 86 L 05/31/21 11:00 Weight - Most Recent: 90.8 kg I&O - Last 24 Hours: Intake & Output 05/30/21 05/31/21 05/31/21 22:59 06:59 14:59 Intake Total 650 Output Total 1100 Balance -450 Lab Results Last 24 Hours: Laboratory Results - last 24 hr 05/30/21 05/30/21 05/30/21 Range/Units 17:27 17:28 17:28 WBC 15.39 H (4.0-11.0) K/uL RBC 4.89 (4.50-5.90) M/uL Hgb 14.9 (13.0-17.0) g/dL Hct 41.9 (38.0-50.0) % MCV 85.7 (80.0-98.0) fL MCH 30.5 (27.0-32.0) pg MCHC 35.6 (31.0-37.0) g/dL RDW Std Deviation 40.8 (28.0-62.0) fl RDW Coeff of Oscar 13 (11.0-15.0) % Plt Count 270 (150-400) K/uL MPV 10.60 (7.40-12.00) fL Neut % (Auto) (48.0-80.0) % Lymph % (Auto) (16.0-40.0) % [place] % (Auto) (0.0-15.0) % Eos % (Auto) (0.0-7.0) % Baso % (Auto) (0.0-1.5) % Neut # (Auto) (1.4-5.7) K/uL Lymph # (Auto) (0.6-2.4) K/uL [place] # (Auto) (0.0-0.8) K/uL Eos # (Auto) (0.0-0.7) K/uL Baso # (Auto) (0.0-0.1) K/uL Add Manual Diff YES Neutrophils % (Manual) 80 (48.0-80.0) % Band Neutrophils % 12 % Lymphocytes % (Manual) 4 L (16.0-40.0) % Monocytes % (Manual) 4 (0.0-15.0) % Nucleated RBC % 0.3 /100WBC Absolute Seg Neuts 12.3 H (1.4-5.7) Band Neutrophils # 1.8 Lymphocytes # (Manual) 0.6 (0.6-2.4) Monocytes # (Manual) 0.6 (0.0-0.8) Nucleated RBCs # 0 K/uL INR APTT (18.6-31.3) SEC D-Dimer, Quantitative (0.0-0.50) mg/L FEU ABG pH 7.43 (7.35-7.45) ABG pCO2 19 L (35-45) mmHG ABG pO2 54 L (80-105) mmHG ABG HCO3 13 L (22-26) mEq/L ABG Total CO2 13 L (23-27) mmol/L ABG Base Excess -9.0 L (-2.0-3.0) Sodium (136-148) mmol/L Potassium (3.5-5.1) mmol/L Chloride (98-107) mmol/L Carbon Dioxide (21.0-32.0) mmol/L BUN (7.0-18.0) mg/dL Creatinine (0.8-1.3) mg/dL Est Cr Clr Drug Dosing Estimated GFR (MDRD) ml/min Glucose (74-106) mg/dL POC Glucose (70-99) mg/dL Hemoglobin A1c (4.5 - 6.2) % Lactic Acid 3.2 H* (0.4-2.0) mmol/L Calcium (8.5-10.1) mg/dL Phosphorus (2.6-4.7) mg/dL Magnesium (1.8-2.4) mg/dL Total Bilirubin (0.2-1.0) mg/dL AST (15-37) IU/L ALT (14-63) IU/L Alkaline Phosphatase (46-116) U/L Troponin I (0.000-0.056) ng/mL C-Reactive Protein (0.00-0.90) mg/dL B-Natriuretic Peptide (<100) PG/ML Total Protein (6.4-8.2) g/dL Albumin (3.4-5.0) g/dL Globulin (2.6-4.0) g/dL Albumin/Globulin Ratio (0.9-1.6) Urine Color Urine Appearance Urine pH (5.0-8.0) Ur Specific [place] (1.001-1.035) Urine Protein (NEGATIVE) mg/dL Urine Glucose (UA) (NEGATIVE) mg/dL Urine Ketones (NEGATIVE) mg/dL Urine Occult Blood (NEGATIVE) Urine Nitrite (NEGATIVE) Urine Bilirubin (NEGATIVE) Urine Ictotest Urine Urobilinogen (<2.0) EU/dL Ur Leukocyte Esterase (NEGATIVE) Urine RBC (0-2/HPF) Urine WBC (0-5/HPF) Ur Epithelial Cells (NONE-FEW) Urine Bacteria (NEGATIVE) 05/30/21 05/30/21 05/30/21 Range/Units 17:28 17:28 17:28 WBC (4.0-11.0) K/uL RBC (4.50-5.90) M/uL Hgb (13.0-17.0) g/dL Hct (38.0-50.0) % MCV (80.0-98.0) fL MCH (27.0-32.0) pg MCHC (31.0-37.0) g/dL RDW Std Deviation (28.0-62.0) fl RDW Coeff of Oscar (11.0-15.0) % Plt Count (150-400) K/uL MPV (7.40-12.00) fL Neut % (Auto) (48.0-80.0) % Lymph % (Auto) (16.0-40.0) % [place] % (Auto) (0.0-15.0) % Eos % (Auto) (0.0-7.0) % Baso % (Auto) (0.0-1.5) % Neut # (Auto) (1.4-5.7) K/uL Lymph # (Auto) (0.6-2.4) K/uL [place] # (Auto) (0.0-0.8) K/uL Eos # (Auto) (0.0-0.7) K/uL Baso # (Auto) (0.0-0.1) K/uL Add Manual Diff Neutrophils % (Manual) (48.0-80.0) % Band Neutrophils % % Lymphocytes % (Manual) (16.0-40.0) % Monocytes % (Manual) (0.0-15.0) % Nucleated RBC % /100WBC Absolute Seg Neuts (1.4-5.7) Band Neutrophils # Lymphocytes # (Manual) (0.6-2.4) Monocytes # (Manual) (0.0-0.8) Nucleated RBCs # K/uL INR 1.19 APTT 23.4 (18.6-31.3) SEC D-Dimer, Quantitative 63.00 H (0.0-0.50) mg/L FEU ABG pH (7.35-7.45) ABG pCO2 (35-45) mmHG ABG pO2 (80-105) mmHG ABG HCO3 (22-26) mEq/L ABG Total CO2 (23-27) mmol/L ABG Base Excess (-2.0-3.0) Sodium 132 L (136-148) mmol/L Potassium 3.5 (3.5-5.1) mmol/L Chloride 89 L (98-107) mmol/L Carbon Dioxide 17.0 L (21.0-32.0) mmol/L BUN 46 H (7.0-18.0) mg/dL Creatinine 1.2 (0.8-1.3) mg/dL Est Cr Clr Drug Dosing TNP Estimated GFR (MDRD) 59.7 ml/min Glucose 252 H (74-106) mg/dL POC Glucose (70-99) mg/dL Hemoglobin A1c (4.5 - 6.2) % Lactic Acid (0.4-2.0) mmol/L Calcium 9.0 (8.5-10.1) mg/dL Phosphorus (2.6-4.7) mg/dL Magnesium 2.9 H (1.8-2.4) mg/dL Total Bilirubin 0.7 (0.2-1.0) mg/dL AST 107 H (15-37) IU/L ALT 79 H (14-63) IU/L Alkaline Phosphatase 133 H (46-116) U/L Troponin I < 0.050 (0.000-0.056) ng/mL C-Reactive Protein 10.60 H (0.00-0.90) mg/dL B-Natriuretic Peptide 72 (<100) PG/ML Total Protein 7.4 (6.4-8.2) g/dL Albumin 3.0 L (3.4-5.0) g/dL Globulin 4.4 H (2.6-4.0) g/dL Albumin/Globulin Ratio 0.7 L (0.9-1.6) Urine Color Urine Appearance Urine pH (5.0-8.0) Ur Specific [place] (1.001-1.035) Urine Protein (NEGATIVE) mg/dL Urine Glucose (UA) (NEGATIVE) mg/dL Urine Ketones (NEGATIVE) mg/dL Urine Occult Blood (NEGATIVE) Urine Nitrite (NEGATIVE) Urine Bilirubin (NEGATIVE) Urine Ictotest Urine Urobilinogen (<2.0) EU/dL Ur Leukocyte Esterase (NEGATIVE) Urine RBC (0-2/HPF) Urine WBC (0-5/HPF) Ur Epithelial Cells (NONE-FEW) Urine Bacteria (NEGATIVE) 05/30/21 05/30/21 05/31/21 Range/Units 20:02 22:36 06:11 WBC (4.0-11.0) K/uL RBC (4.50-5.90) M/uL Hgb (13.0-17.0) g/dL Hct (38.0-50.0) % MCV (80.0-98.0) fL MCH (27.0-32.0) pg MCHC (31.0-37.0) g/dL RDW Std Deviation (28.0-62.0) fl RDW Coeff of Oscar (11.0-15.0) % Plt Count (150-400) K/uL MPV (7.40-12.00) fL Neut % (Auto) (48.0-80.0) % Lymph % (Auto) (16.0-40.0) % [place] % (Auto) (0.0-15.0) % Eos % (Auto) (0.0-7.0) % Baso % (Auto) (0.0-1.5) % Neut # (Auto) (1.4-5.7) K/uL Lymph # (Auto) (0.6-2.4) K/uL [place] # (Auto) (0.0-0.8) K/uL Eos # (Auto) (0.0-0.7) K/uL Baso # (Auto) (0.0-0.1) K/uL Add Manual Diff Neutrophils % (Manual) (48.0-80.0) % Band Neutrophils % % Lymphocytes % (Manual) (16.0-40.0) % Monocytes % (Manual) (0.0-15.0) % Nucleated RBC % /100WBC Absolute Seg Neuts (1.4-5.7) Band Neutrophils # Lymphocytes # (Manual) (0.6-2.4) Monocytes # (Manual) (0.0-0.8) Nucleated RBCs # K/uL INR APTT (18.6-31.3) SEC D-Dimer, Quantitative (0.0-0.50) mg/L FEU ABG pH (7.35-7.45) ABG pCO2 (35-45) mmHG ABG pO2 (80-105) mmHG ABG HCO3 (22-26) mEq/L ABG Total CO2 (23-27) mmol/L ABG Base Excess (-2.0-3.0) Sodium (136-148) mmol/L Potassium (3.5-5.1) mmol/L Chloride (98-107) mmol/L Carbon Dioxide (21.0-32.0) mmol/L BUN (7.0-18.0) mg/dL Creatinine (0.8-1.3) mg/dL Est Cr Clr Drug Dosing Estimated GFR (MDRD) ml/min Glucose (74-106) mg/dL POC Glucose (70-99) mg/dL Hemoglobin A1c 9.0 H (4.5 - 6.2) % Lactic Acid 2.0 (0.4-2.0) mmol/L Calcium (8.5-10.1) mg/dL Phosphorus (2.6-4.7) mg/dL Magnesium (1.8-2.4) mg/dL Total Bilirubin (0.2-1.0) mg/dL AST (15-37) IU/L ALT (14-63) IU/L Alkaline Phosphatase (46-116) U/L Troponin I (0.000-0.056) ng/mL C-Reactive Protein (0.00-0.90) mg/dL B-Natriuretic Peptide (<100) PG/ML Total Protein (6.4-8.2) g/dL Albumin (3.4-5.0) g/dL Globulin (2.6-4.0) g/dL Albumin/Globulin Ratio (0.9-1.6) Urine Color YELLOW Urine Appearance CLEAR Urine pH 6.0 (5.0-8.0) Ur Specific [place] 1.015 (1.001-1.035) Urine Protein 30 H (NEGATIVE) mg/dL Urine Glucose (UA) >=1000 (NEGATIVE) mg/dL Urine Ketones >=80 (NEGATIVE) mg/dL Urine Occult Blood SMALL H (NEGATIVE) Urine Nitrite NEGATIVE (NEGATIVE) Urine Bilirubin SMALL H (NEGATIVE) Urine Ictotest NEGATIVE Urine Urobilinogen 0.2 (<2.0) EU/dL Ur Leukocyte Esterase NEGATIVE (NEGATIVE) Urine RBC 0-2 (0-2/HPF) Urine WBC 0-2 (0-5/HPF) Ur Epithelial Cells RARE (NONE-FEW) Urine Bacteria FEW (NEGATIVE) 05/31/21 05/31/21 05/31/21 Range/Units 06:11 06:11 06:29 WBC 13.39 H (4.0-11.0) K/uL RBC 4.69 (4.50-5.90) M/uL Hgb 14.1 (13.0-17.0) g/dL Hct 39.7 (38.0-50.0) % MCV 84.6 (80.0-98.0) fL MCH 30.1 (27.0-32.0) pg MCHC 35.5 (31.0-37.0) g/dL RDW Std Deviation 40.2 (28.0-62.0) fl RDW Coeff of Oscar 13 (11.0-15.0) % Plt Count 280 (150-400) K/uL MPV 10.80 (7.40-12.00) fL Neut % (Auto) 87.5 H (48.0-80.0) % Lymph % (Auto) 7.5 L (16.0-40.0) % [place] % (Auto) 4.6 (0.0-15.0) % Eos % (Auto) 0.0 (0.0-7.0) % Baso % (Auto) 0.4 (0.0-1.5) % Neut # (Auto) 11.7 H (1.4-5.7) K/uL Lymph # (Auto) 1.0 (0.6-2.4) K/uL [place] # (Auto) 0.6 (0.0-0.8) K/uL Eos # (Auto) 0.0 (0.0-0.7) K/uL Baso # (Auto) 0.1 (0.0-0.1) K/uL Add Manual Diff Neutrophils % (Manual) (48.0-80.0) % Band Neutrophils % % Lymphocytes % (Manual) (16.0-40.0) % Monocytes % (Manual) (0.0-15.0) % Nucleated RBC % 0.3 /100WBC Absolute Seg Neuts (1.4-5.7) Band Neutrophils # Lymphocytes # (Manual) (0.6-2.4) Monocytes # (Manual) (0.0-0.8) Nucleated RBCs # 0 K/uL INR APTT (18.6-31.3) SEC D-Dimer, Quantitative (0.0-0.50) mg/L FEU ABG pH (7.35-7.45) ABG pCO2 (35-45) mmHG ABG pO2 (80-105) mmHG ABG HCO3 (22-26) mEq/L ABG Total CO2 (23-27) mmol/L ABG Base Excess (-2.0-3.0) Sodium 135 L (136-148) mmol/L Potassium 3.1 L (3.5-5.1) mmol/L Chloride 94 L (98-107) mmol/L Carbon Dioxide 19.4 L (21.0-32.0) mmol/L BUN 41 H (7.0-18.0) mg/dL Creatinine 1.1 (0.8-1.3) mg/dL Est Cr Clr Drug Dosing 57.59 Estimated GFR (MDRD) > 60.0 ml/min Glucose 291 H (74-106) mg/dL POC Glucose 286 H (70-99) mg/dL Hemoglobin A1c (4.5 - 6.2) % Lactic Acid (0.4-2.0) mmol/L Calcium 8.4 L (8.5-10.1) mg/dL Phosphorus 4.9 H (2.6-4.7) mg/dL Magnesium 2.5 H (1.8-2.4) mg/dL Total Bilirubin 0.5 (0.2-1.0) mg/dL AST 92 H (15-37) IU/L ALT 73 H (14-63) IU/L Alkaline Phosphatase 141 H (46-116) U/L Troponin I (0.000-0.056) ng/mL C-Reactive Protein (0.00-0.90) mg/dL B-Natriuretic Peptide (<100) PG/ML Total Protein 6.9 (6.4-8.2) g/dL Albumin 2.7 L (3.4-5.0) g/dL Globulin 4.2 H (2.6-4.0) g/dL Albumin/Globulin Ratio 0.6 L (0.9-1.6) Urine Color Urine Appearance Urine pH (5.0-8.0) Ur Specific [place] (1.001-1.035) Urine Protein (NEGATIVE) mg/dL Urine Glucose (UA) (NEGATIVE) mg/dL Urine Ketones (NEGATIVE) mg/dL Urine Occult Blood (NEGATIVE) Urine Nitrite (NEGATIVE) Urine Bilirubin (NEGATIVE) Urine Ictotest Urine Urobilinogen (<2.0) EU/dL Ur Leukocyte Esterase (NEGATIVE) Urine RBC (0-2/HPF) Urine WBC (0-5/HPF) Ur Epithelial Cells (NONE-FEW) Urine Bacteria (NEGATIVE) 05/31/21 Range/Units 12:50 WBC (4.0-11.0) K/uL RBC (4.50-5.90) M/uL Hgb (13.0-17.0) g/dL Hct (38.0-50.0) % MCV (80.0-98.0) fL MCH (27.0-32.0) pg MCHC (31.0-37.0) g/dL RDW Std Deviation (28.0-62.0) fl RDW Coeff of Oscar (11.0-15.0) % Plt Count (150-400) K/uL MPV (7.40-12.00) fL Neut % (Auto) (48.0-80.0) % Lymph % (Auto) (16.0-40.0) % [place] % (Auto) (0.0-15.0) % Eos % (Auto) (0.0-7.0) % Baso % (Auto) (0.0-1.5) % Neut # (Auto) (1.4-5.7) K/uL Lymph # (Auto) (0.6-2.4) K/uL [place] # (Auto) (0.0-0.8) K/uL Eos # (Auto) (0.0-0.7) K/uL Baso # (Auto) (0.0-0.1) K/uL Add Manual Diff Neutrophils % (Manual) (48.0-80.0) % Band Neutrophils % % Lymphocytes % (Manual) (16.0-40.0) % Monocytes % (Manual) (0.0-15.0) % Nucleated RBC % /100WBC Absolute Seg Neuts (1.4-5.7) Band Neutrophils # Lymphocytes # (Manual) (0.6-2.4) Monocytes # (Manual) (0.0-0.8) Nucleated RBCs # K/uL INR APTT (18.6-31.3) SEC D-Dimer, Quantitative (0.0-0.50) mg/L FEU ABG pH (7.35-7.45) ABG pCO2 (35-45) mmHG ABG pO2 (80-105) mmHG ABG HCO3 (22-26) mEq/L ABG Total CO2 (23-27) mmol/L ABG Base Excess (-2.0-3.0) Sodium (136-148) mmol/L Potassium (3.5-5.1) mmol/L Chloride (98-107) mmol/L Carbon Dioxide (21.0-32.0) mmol/L BUN (7.0-18.0) mg/dL Creatinine (0.8-1.3) mg/dL Est Cr Clr Drug Dosing Estimated GFR (MDRD) ml/min Glucose (74-106) mg/dL POC Glucose 278 H (70-99) mg/dL Hemoglobin A1c (4.5 - 6.2) % Lactic Acid (0.4-2.0) mmol/L Calcium (8.5-10.1) mg/dL Phosphorus (2.6-4.7) mg/dL Magnesium (1.8-2.4) mg/dL Total Bilirubin (0.2-1.0) mg/dL AST (15-37) IU/L ALT (14-63) IU/L Alkaline Phosphatase (46-116) U/L Troponin I (0.000-0.056) ng/mL C-Reactive Protein (0.00-0.90) mg/dL B-Natriuretic Peptide (<100) PG/ML Total Protein (6.4-8.2) g/dL Albumin (3.4-5.0) g/dL Globulin (2.6-4.0) g/dL Albumin/Globulin Ratio (0.9-1.6) Urine Color Urine Appearance Urine pH (5.0-8.0) Ur Specific [place] (1.001-1.035) Urine Protein (NEGATIVE) mg/dL Urine Glucose (UA) (NEGATIVE) mg/dL Urine Ketones (NEGATIVE) mg/dL Urine Occult Blood (NEGATIVE) Urine Nitrite (NEGATIVE) Urine Bilirubin (NEGATIVE) Urine Ictotest Urine Urobilinogen (<2.0) EU/dL Ur Leukocyte Esterase (NEGATIVE) Urine RBC (0-2/HPF) Urine WBC (0-5/HPF) Ur Epithelial Cells (NONE-FEW) Urine Bacteria (NEGATIVE) Med Orders - Current: Current Medications Albuterol/Ipratropium (Albuterol/Ipratropium 3.0-0.5 Mg/3 Ml Neb Soln) 3 ml NEB Q4HRRT [facility] Last Admin: 05/31/21 09:30 Dose: 3 ml Documented by: Aspirin (Aspirin 81 Mg Tab.Ec) 81 mg PO DAILY [facility] Last Admin: 05/31/21 08:43 Dose: 81 mg Documented by: Atorvastatin Calcium (Atorvastatin 40 Mg Tab) 40 mg PO DAILY [facility] Last Admin: 05/31/21 08:44 Dose: 40 mg Documented by: Dexamethasone (Dexamethasone 4 Mg/Ml Sdv) 6 mg IVPUSH DAILY [facility] Last Admin: 05/31/21 08:44 Dose: 6 mg Documented by: Dextrose/Water (50% Dextrose In Water 50 Ml Syringe) 50 ml IVPUSH ASDIRECTED PRN PRN Reason: Hypoglycemia Enoxaparin Sodium (Enoxaparin 100 Mg/1 Ml Syringe) 90 mg SUBCUT BID [facility] Last Admin: 05/31/21 12:46 Dose: 90 mg Documented by: Glucagon (Glucagon,Human Recombinant 1 Mg Vial) 1 mg IM ASDIRECTED PRN PRN Reason: Hypoglycemia Lisinopril/HCTZ (Lisinopril/Hydrochlorothiazide 10-12.5 Mg Tab) 0.5 tab PO DAILY [facility] Last Admin: 05/31/21 08:43 Dose: 0.5 tab Documented by: Remdesivir 100 mg/ Sodium (Chloride) 100 mls @ 100 mls/hr IV Q24H [facility] Stop: 06/03/21 19:59 Ceftriaxone Sodium/Dextrose 1 (gm/ Premix) 50 mls @ 100 mls/hr IV Q24H [facility] Azithromycin 500 mg/ Sodium (Chloride) 250 mls @ 250 mls/hr IV Q24H [facility] Pantoprazole Sodium 40 mg/ (Sodium Chloride) 10 mls @ 300 mls/hr IV Q24H [facility] Last Admin: 05/31/21 08:42 Dose: 300 mls/hr Documented by: Insulin Aspart (Insulin Aspart 100 Units/Ml 3 Ml Pen) 0 unit SUBCUT TIDAC [facility]; Protocol Last Admin: 05/31/21 08:43 Dose: 3 unit Documented by: Ondansetron HCl (Ondansetron 4 Mg/2 Ml Sdv) 4 mg IVPUSH Q4H PRN PRN Reason: Nausea/Vomiting Sodium Chloride (Sodium Chloride 0.9% 10 Ml Syringe) 10 ml FLUSH ASDIRECTED PRN PRN Reason: Keep Vein Open Last Admin: 05/30/21 17:39 Dose: 10 ml Documented by: Sodium Chloride (Sodium Chloride 0.9% 2.5 Ml Syringe) 2.5 ml FLUSH ASDIRECTED PRN PRN Reason: Keep Vein Open Last Admin: 05/30/21 17:39 Dose: 2.5 ml Documented by: Discontinued Medications Dexamethasone (Dexamethasone 10 Mg/Ml Sdv) 6 mg IVPUSH ONETIME ONE Stop: 05/30/21 17:31 Last Admin: 05/30/21 17:37 Dose: 6 mg Documented by: Diphenhydramine HCl (Diphenhydramine 50 Mg/Ml Sdv) 25 mg IVPUSH ONETIME ONE Stop: 05/31/21 01:01 Last Admin: 05/31/21 00:59 Dose: 25 mg Documented by: Enoxaparin Sodium (Enoxaparin 150 Mg/1 Ml Syringe) 150 mg SUBCUT ONETIME ONE Stop: 05/30/21 19:38 Last Admin: 05/30/21 19:45 Dose: 150 mg Documented by: Enoxaparin Sodium (Enoxaparin 40 Mg/0.4 Ml Syringe) 90 mg SUBCUT BID [facility] Last Admin: 05/31/21 12:39 Dose: Not Given Documented by: Furosemide (Furosemide 40 Mg/4 Ml Vial) 40 mg IVPUSH NOW ONE Stop: 05/30/21 23:57 Last Admin: 05/31/21 00:19 Dose: 40 mg Documented by: Furosemide (Furosemide 20 Mg/2 Ml Vial) 20 mg IVPUSH ONETIME ONE Stop: 05/31/21 10:12 Last Admin: 05/31/21 10:36 Dose: 20 mg Documented by: Haloperidol Lactate (Haloperidol Lactate 5 Mg/Ml Sdv) 2 mg IM ONETIME ONE Stop: 05/31/21 01:01 Last Admin: 05/31/21 00:56 Dose: 2 mg Documented by: Ceftriaxone Sodium/Dextrose 1 (gm/ Premix) 50 mls @ 100 mls/hr IV ONETIME ONE Stop: 05/30/21 18:28 Last Admin: 05/30/21 18:34 Dose: 100 mls/hr Documented by: Azithromycin 500 mg/ Sodium (Chloride) 250 mls @ 250 mls/hr IV ONETIME JUANITO Last Admin: 05/30/21 19:36 Dose: 250 mls/hr Documented by: Sodium Chloride (Normal Saline) 1,000 mls @ 250 mls/hr IV ONETIME ONE Stop: 05/30/21 22:59 Last Admin: 05/30/21 19:36 Dose: 250 mls/hr Documented by: Remdesivir 200 mg/ Sodium (Chloride) 250 mls @ 250 mls/hr IV ONETIME ONE Stop: 05/30/21 20:34 Last Admin: 05/30/21 22:54 Dose: 250 mls/hr Documented by: Lorazepam (Lorazepam 2 Mg/Ml Sdv) 2 mg IVPUSH ONETIME ONE Stop: 05/30/21 22:14 Last Admin: 05/30/21 22:53 Dose: 2 mg Documented by: Lorazepam (Lorazepam 2 Mg/Ml Sdv) 2 mg IVPUSH ONETIME ONE Stop: 05/31/21 11:03 Potassium Chloride (Potassium Chloride 20 Meq Tab.Er) 40 meq PO ONETIME ONE Stop: 05/31/21 09:28 Last Admin: 05/31/21 09:52 Dose: 40 meq Documented by: - Exam Quality Assessment: Supplemental Oxygen General: Alert, Mild Distress Neck: Supple Lungs: Decreased Breath Sounds, Crackles, Rales Cardiovascular: Regular Rate, Regular Rhythm GI/Abdominal Exam: Normal Bowel Sounds, Soft, Non-Tender Extremities: Normal Inspection, Normal Range of Motion, No Pedal Edema - Patient Data Lab Results Last 24 hrs: Laboratory Results - last 24 hr 05/30/21 05/30/21 05/30/21 Range/Units 17:27 17:28 17:28 WBC 15.39 H (4.0-11.0) K/uL RBC 4.89 (4.50-5.90) M/uL Hgb 14.9 (13.0-17.0) g/dL Hct 41.9 (38.0-50.0) % MCV 85.7 (80.0-98.0) fL MCH 30.5 (27.0-32.0) pg MCHC 35.6 (31.0-37.0) g/dL RDW Std Deviation 40.8 (28.0-62.0) fl RDW Coeff of Oscar 13 (11.0-15.0) % Plt Count 270 (150-400) K/uL MPV 10.60 (7.40-12.00) fL Neut % (Auto) (48.0-80.0) % Lymph % (Auto) (16.0-40.0) % [place] % (Auto) (0.0-15.0) % Eos % (Auto) (0.0-7.0) % Baso % (Auto) (0.0-1.5) % Neut # (Auto) (1.4-5.7) K/uL Lymph # (Auto) (0.6-2.4) K/uL [place] # (Auto) (0.0-0.8) K/uL Eos # (Auto) (0.0-0.7) K/uL Baso # (Auto) (0.0-0.1) K/uL Add Manual Diff YES Neutrophils % (Manual) 80 (48.0-80.0) % Band Neutrophils % 12 % Lymphocytes % (Manual) 4 L (16.0-40.0) % Monocytes % (Manual) 4 (0.0-15.0) % Nucleated RBC % 0.3 /100WBC Absolute Seg Neuts 12.3 H (1.4-5.7) Band Neutrophils # 1.8 Lymphocytes # (Manual) 0.6 (0.6-2.4) Monocytes # (Manual) 0.6 (0.0-0.8) Nucleated RBCs # 0 K/uL INR APTT (18.6-31.3) SEC D-Dimer, Quantitative (0.0-0.50) mg/L FEU ABG pH 7.43 (7.35-7.45) ABG pCO2 19 L (35-45) mmHG ABG pO2 54 L (80-105) mmHG ABG HCO3 13 L (22-26) mEq/L ABG Total CO2 13 L (23-27) mmol/L ABG Base Excess -9.0 L (-2.0-3.0) Sodium (136-148) mmol/L Potassium (3.5-5.1) mmol/L Chloride (98-107) mmol/L Carbon Dioxide (21.0-32.0) mmol/L BUN (7.0-18.0) mg/dL Creatinine (0.8-1.3) mg/dL Est Cr Clr Drug Dosing Estimated GFR (MDRD) ml/min Glucose (74-106) mg/dL POC Glucose (70-99) mg/dL Hemoglobin A1c (4.5 - 6.2) % Lactic Acid 3.2 H* (0.4-2.0) mmol/L Calcium (8.5-10.1) mg/dL Phosphorus (2.6-4.7) mg/dL Magnesium (1.8-2.4) mg/dL Total Bilirubin (0.2-1.0) mg/dL AST (15-37) IU/L ALT (14-63) IU/L Alkaline Phosphatase (46-116) U/L Troponin I (0.000-0.056) ng/mL C-Reactive Protein (0.00-0.90) mg/dL B-Natriuretic Peptide (<100) PG/ML Total Protein (6.4-8.2) g/dL Albumin (3.4-5.0) g/dL Globulin (2.6-4.0) g/dL Albumin/Globulin Ratio (0.9-1.6) Urine Color Urine Appearance Urine pH (5.0-8.0) Ur Specific [place] (1.001-1.035) Urine Protein (NEGATIVE) mg/dL Urine Glucose (UA) (NEGATIVE) mg/dL Urine Ketones (NEGATIVE) mg/dL Urine Occult Blood (NEGATIVE) Urine Nitrite (NEGATIVE) Urine Bilirubin (NEGATIVE) Urine Ictotest Urine Urobilinogen (<2.0) EU/dL Ur Leukocyte Esterase (NEGATIVE) Urine RBC (0-2/HPF) Urine WBC (0-5/HPF) Ur Epithelial Cells (NONE-FEW) Urine Bacteria (NEGATIVE) 05/30/21 05/30/21 05/30/21 Range/Units 17:28 17:28 17:28 WBC (4.0-11.0) K/uL RBC (4.50-5.90) M/uL Hgb (13.0-17.0) g/dL Hct (38.0-50.0) % MCV (80.0-98.0) fL MCH (27.0-32.0) pg MCHC (31.0-37.0) g/dL RDW Std Deviation (28.0-62.0) fl RDW Coeff of Oscar (11.0-15.0) % Plt Count (150-400) K/uL MPV (7.40-12.00) fL Neut % (Auto) (48.0-80.0) % Lymph % (Auto) (16.0-40.0) % [place] % (Auto) (0.0-15.0) % Eos % (Auto) (0.0-7.0) % Baso % (Auto) (0.0-1.5) % Neut # (Auto) (1.4-5.7) K/uL Lymph # (Auto) (0.6-2.4) K/uL [place] # (Auto) (0.0-0.8) K/uL Eos # (Auto) (0.0-0.7) K/uL Baso # (Auto) (0.0-0.1) K/uL Add Manual Diff Neutrophils % (Manual) (48.0-80.0) % Band Neutrophils % % Lymphocytes % (Manual) (16.0-40.0) % Monocytes % (Manual) (0.0-15.0) % Nucleated RBC % /100WBC Absolute Seg Neuts (1.4-5.7) Band Neutrophils # Lymphocytes # (Manual) (0.6-2.4) Monocytes # (Manual) (0.0-0.8) Nucleated RBCs # K/uL INR 1.19 APTT 23.4 (18.6-31.3) SEC D-Dimer, Quantitative 63.00 H (0.0-0.50) mg/L FEU ABG pH (7.35-7.45) ABG pCO2 (35-45) mmHG ABG pO2 (80-105) mmHG ABG HCO3 (22-26) mEq/L ABG Total CO2 (23-27) mmol/L ABG Base Excess (-2.0-3.0) Sodium 132 L (136-148) mmol/L Potassium 3.5 (3.5-5.1) mmol/L Chloride 89 L (98-107) mmol/L Carbon Dioxide 17.0 L (21.0-32.0) mmol/L BUN 46 H (7.0-18.0) mg/dL Creatinine 1.2 (0.8-1.3) mg/dL Est Cr Clr Drug Dosing TNP Estimated GFR (MDRD) 59.7 ml/min Glucose 252 H (74-106) mg/dL POC Glucose (70-99) mg/dL Hemoglobin A1c (4.5 - 6.2) % Lactic Acid (0.4-2.0) mmol/L Calcium 9.0 (8.5-10.1) mg/dL Phosphorus (2.6-4.7) mg/dL Magnesium 2.9 H (1.8-2.4) mg/dL Total Bilirubin 0.7 (0.2-1.0) mg/dL AST 107 H (15-37) IU/L ALT 79 H (14-63) IU/L Alkaline Phosphatase 133 H (46-116) U/L Troponin I < 0.050 (0.000-0.056) ng/mL C-Reactive Protein 10.60 H (0.00-0.90) mg/dL B-Natriuretic Peptide 72 (<100) PG/ML Total Protein 7.4 (6.4-8.2) g/dL Albumin 3.0 L (3.4-5.0) g/dL Globulin 4.4 H (2.6-4.0) g/dL Albumin/Globulin Ratio 0.7 L (0.9-1.6) Urine Color Urine Appearance Urine pH (5.0-8.0) Ur Specific [place] (1.001-1.035) Urine Protein (NEGATIVE) mg/dL Urine Glucose (UA) (NEGATIVE) mg/dL Urine Ketones (NEGATIVE) mg/dL Urine Occult Blood (NEGATIVE) Urine Nitrite (NEGATIVE) Urine Bilirubin (NEGATIVE) Urine Ictotest Urine Urobilinogen (<2.0) EU/dL Ur Leukocyte Esterase (NEGATIVE) Urine RBC (0-2/HPF) Urine WBC (0-5/HPF) Ur Epithelial Cells (NONE-FEW) Urine Bacteria (NEGATIVE) 09/10/1905/30/21 05/31/21 Range/Units 20:02 22:36 06:11 WBC (4.0-11.0) K/uL RBC (4.50-5.90) M/uL Hgb (13.0-17.0) g/dL Hct (38.0-50.0) % MCV (80.0-98.0) fL MCH (27.0-32.0) pg MCHC (31.0-37.0) g/dL RDW Std Deviation (28.0-62.0) fl RDW Coeff of Oscar (11.0-15.0) % Plt Count (150-400) K/uL MPV (7.40-12.00) fL Neut % (Auto) (48.0-80.0) % Lymph % (Auto) (16.0-40.0) % [place] % (Auto) (0.0-15.0) % Eos % (Auto) (0.0-7.0) % Baso % (Auto) (0.0-1.5) % Neut # (Auto) (1.4-5.7) K/uL Lymph # (Auto) (0.6-2.4) K/uL [place] # (Auto) (0.0-0.8) K/uL Eos # (Auto) (0.0-0.7) K/uL Baso # (Auto) (0.0-0.1) K/uL Add Manual Diff Neutrophils % (Manual) (48.0-80.0) % Band Neutrophils % % Lymphocytes % (Manual) (16.0-40.0) % Monocytes % (Manual) (0.0-15.0) % Nucleated RBC % /100WBC Absolute Seg Neuts (1.4-5.7) Band Neutrophils # Lymphocytes # (Manual) (0.6-2.4) Monocytes # (Manual) (0.0-0.8) Nucleated RBCs # K/uL INR APTT (18.6-31.3) SEC D-Dimer, Quantitative (0.0-0.50) mg/L FEU ABG pH (7.35-7.45) ABG pCO2 (35-45) mmHG ABG pO2 (80-105) mmHG ABG HCO3 (22-26) mEq/L ABG Total CO2 (23-27) mmol/L ABG Base Excess (-2.0-3.0) Sodium (136-148) mmol/L Potassium (3.5-5.1) mmol/L Chloride (98-107) mmol/L Carbon Dioxide (21.0-32.0) mmol/L BUN (7.0-18.0) mg/dL Creatinine (0.8-1.3) mg/dL Est Cr Clr Drug Dosing Estimated GFR (MDRD) ml/min Glucose (74-106) mg/dL POC Glucose (70-99) mg/dL Hemoglobin A1c 9.0 H (4.5 - 6.2) % Lactic Acid 2.0 (0.4-2.0) mmol/L Calcium (8.5-10.1) mg/dL Phosphorus (2.6-4.7) mg/dL Magnesium (1.8-2.4) mg/dL Total Bilirubin (0.2-1.0) mg/dL AST (15-37) IU/L ALT (14-63) IU/L Alkaline Phosphatase (46-116) U/L Troponin I (0.000-0.056) ng/mL C-Reactive Protein (0.00-0.90) mg/dL B-Natriuretic Peptide (<100) PG/ML Total Protein (6.4-8.2) g/dL Albumin (3.4-5.0) g/dL Globulin (2.6-4.0) g/dL Albumin/Globulin Ratio (0.9-1.6) Urine Color YELLOW Urine Appearance CLEAR Urine pH 6.0 (5.0-8.0) Ur Specific [place] 1.015 (1.001-1.035) Urine Protein 30 H (NEGATIVE) mg/dL Urine Glucose (UA) >=1000 (NEGATIVE) mg/dL Urine Ketones >=80 (NEGATIVE) mg/dL Urine Occult Blood SMALL H (NEGATIVE) Urine Nitrite NEGATIVE (NEGATIVE) Urine Bilirubin SMALL H (NEGATIVE) Urine Ictotest NEGATIVE Urine Urobilinogen 0.2 (<2.0) EU/dL Ur Leukocyte Esterase NEGATIVE (NEGATIVE) Urine RBC 0-2 (0-2/HPF) Urine WBC 0-2 (0-5/HPF) Ur Epithelial Cells RARE (NONE-FEW) Urine Bacteria FEW (NEGATIVE) 05/31/21 05/31/21 05/31/21 Range/Units 06:11 06:11 06:29 WBC 13.39 H (4.0-11.0) K/uL RBC 4.69 (4.50-5.90) M/uL Hgb 14.1 (13.0-17.0) g/dL Hct 39.7 (38.0-50.0) % MCV 84.6 (80.0-98.0) fL MCH 30.1 (27.0-32.0) pg MCHC 35.5 (31.0-37.0) g/dL RDW Std Deviation 40.2 (28.0-62.0) fl RDW Coeff of Oscar 13 (11.0-15.0) % Plt Count 280 (150-400) K/uL MPV 10.80 (7.40-12.00) fL Neut % (Auto) 87.5 H (48.0-80.0) % Lymph % (Auto) 7.5 L (16.0-40.0) % [place] % (Auto) 4.6 (0.0-15.0) % Eos % (Auto) 0.0 (0.0-7.0) % Baso % (Auto) 0.4 (0.0-1.5) % Neut # (Auto) 11.7 H (1.4-5.7) K/uL Lymph # (Auto) 1.0 (0.6-2.4) K/uL [place] # (Auto) 0.6 (0.0-0.8) K/uL Eos # (Auto) 0.0 (0.0-0.7) K/uL Baso # (Auto) 0.1 (0.0-0.1) K/uL Add Manual Diff Neutrophils % (Manual) (48.0-80.0) % Band Neutrophils % % Lymphocytes % (Manual) (16.0-40.0) % Monocytes % (Manual) (0.0-15.0) % Nucleated RBC % 0.3 /100WBC Absolute Seg Neuts (1.4-5.7) Band Neutrophils # Lymphocytes # (Manual) (0.6-2.4) Monocytes # (Manual) (0.0-0.8) Nucleated RBCs # 0 K/uL INR APTT (18.6-31.3) SEC D-Dimer, Quantitative (0.0-0.50) mg/L FEU ABG pH (7.35-7.45) ABG pCO2 (35-45) mmHG ABG pO2 (80-105) mmHG ABG HCO3 (22-26) mEq/L ABG Total CO2 (23-27) mmol/L ABG Base Excess (-2.0-3.0) Sodium 135 L (136-148) mmol/L Potassium 3.1 L (3.5-5.1) mmol/L Chloride 94 L (98-107) mmol/L Carbon Dioxide 19.4 L (21.0-32.0) mmol/L BUN 41 H (7.0-18.0) mg/dL Creatinine 1.1 (0.8-1.3) mg/dL Est Cr Clr Drug Dosing 57.59 Estimated GFR (MDRD) > 60.0 ml/min Glucose 291 H (74-106) mg/dL POC Glucose 286 H (70-99) mg/dL Hemoglobin A1c (4.5 - 6.2) % Lactic Acid (0.4-2.0) mmol/L Calcium 8.4 L (8.5-10.1) mg/dL Phosphorus 4.9 H (2.6-4.7) mg/dL Magnesium 2.5 H (1.8-2.4) mg/dL Total Bilirubin 0.5 (0.2-1.0) mg/dL AST 92 H (15-37) IU/L ALT 73 H (14-63) IU/L Alkaline Phosphatase 141 H (46-116) U/L Troponin I (0.000-0.056) ng/mL C-Reactive Protein (0.00-0.90) mg/dL B-Natriuretic Peptide (<100) PG/ML Total Protein 6.9 (6.4-8.2) g/dL Albumin 2.7 L (3.4-5.0) g/dL Globulin 4.2 H (2.6-4.0) g/dL Albumin/Globulin Ratio 0.6 L (0.9-1.6) Urine Color Urine Appearance Urine pH (5.0-8.0) Ur Specific [place] (1.001-1.035) Urine Protein (NEGATIVE) mg/dL Urine Glucose (UA) (NEGATIVE) mg/dL Urine Ketones (NEGATIVE) mg/dL Urine Occult Blood (NEGATIVE) Urine Nitrite (NEGATIVE) Urine Bilirubin (NEGATIVE) Urine Ictotest Urine Urobilinogen (<2.0) EU/dL Ur Leukocyte Esterase (NEGATIVE) Urine RBC (0-2/HPF) Urine WBC (0-5/HPF) Ur Epithelial Cells (NONE-FEW) Urine Bacteria (NEGATIVE) 05/31/21 Range/Units 12:50 WBC (4.0-11.0) K/uL RBC (4.50-5.90) M/uL Hgb (13.0-17.0) g/dL Hct (38.0-50.0) % MCV (80.0-98.0) fL MCH (27.0-32.0) pg MCHC (31.0-37.0) g/dL RDW Std Deviation (28.0-62.0) fl RDW Coeff of Oscar (11.0-15.0) % Plt Count (150-400) K/uL MPV (7.40-12.00) fL Neut % (Auto) (48.0-80.0) % Lymph % (Auto) (16.0-40.0) % [place] % (Auto) (0.0-15.0) % Eos % (Auto) (0.0-7.0) % Baso % (Auto) (0.0-1.5) % Neut # (Auto) (1.4-5.7) K/uL Lymph # (Auto) (0.6-2.4) K/uL [place] # (Auto) (0.0-0.8) K/uL Eos # (Auto) (0.0-0.7) K/uL Baso # (Auto) (0.0-0.1) K/uL Add Manual Diff Neutrophils % (Manual) (48.0-80.0) % Band Neutrophils % % Lymphocytes % (Manual) (16.0-40.0) % Monocytes % (Manual) (0.0-15.0) % Nucleated RBC % /100WBC Absolute Seg Neuts (1.4-5.7) Band Neutrophils # Lymphocytes # (Manual) (0.6-2.4) Monocytes # (Manual) (0.0-0.8) Nucleated RBCs # K/uL INR APTT (18.6-31.3) SEC D-Dimer, Quantitative (0.0-0.50) mg/L FEU ABG pH (7.35-7.45) ABG pCO2 (35-45) mmHG ABG pO2 (80-105) mmHG ABG HCO3 (22-26) mEq/L ABG Total CO2 (23-27) mmol/L ABG Base Excess (-2.0-3.0) Sodium (136-148) mmol/L Potassium (3.5-5.1) mmol/L Chloride (98-107) mmol/L Carbon Dioxide (21.0-32.0) mmol/L BUN (7.0-18.0) mg/dL Creatinine (0.8-1.3) mg/dL Est Cr Clr Drug Dosing Estimated GFR (MDRD) ml/min Glucose (74-106) mg/dL POC Glucose 278 H (70-99) mg/dL Hemoglobin A1c (4.5 - 6.2) % Lactic Acid (0.4-2.0) mmol/L Calcium (8.5-10.1) mg/dL Phosphorus (2.6-4.7) mg/dL Magnesium (1.8-2.4) mg/dL Total Bilirubin (0.2-1.0) mg/dL AST (15-37) IU/L ALT (14-63) IU/L Alkaline Phosphatase (46-116) U/L Troponin I (0.000-0.056) ng/mL C-Reactive Protein (0.00-0.90) mg/dL B-Natriuretic Peptide (<100) PG/ML Total Protein (6.4-8.2) g/dL Albumin (3.4-5.0) g/dL Globulin (2.6-4.0) g/dL Albumin/Globulin Ratio (0.9-1.6) Urine Color Urine Appearance Urine pH (5.0-8.0) Ur Specific [place] (1.001-1.035) Urine Protein (NEGATIVE) mg/dL Urine Glucose (UA) (NEGATIVE) mg/dL Urine Ketones (NEGATIVE) mg/dL Urine Occult Blood (NEGATIVE) Urine Nitrite (NEGATIVE) Urine Bilirubin (NEGATIVE) Urine Ictotest Urine Urobilinogen (<2.0) EU/dL Ur Leukocyte Esterase (NEGATIVE) Urine RBC (0-2/HPF) Urine WBC (0-5/HPF) Ur Epithelial Cells (NONE-FEW) Urine Bacteria (NEGATIVE) Result Diagrams: 05/31/21 06:11 05/31/21 06:11 Sepsis Event Note - Evaluation Sepsis Screening Result: Possible Sepsis Risk - Focused Exam Vital Signs: Vital Signs Temp Pulse Resp BP Pulse Ox 05/31/21 11:00 21 H 109/64 86 L 05/31/21 10:00 20 101/58 L 93 L 05/31/21 09:00 16 118/77 96 05/31/21 08:00 36.5 C 28 H 119/67 93 L 05/31/21 07:00 88 23 H 117/70 91 L 05/31/21 06:00 94 31 H 119/59 L 91 L 05/31/21 05:00 36.7 C 92 25 H 114/61 90 L 05/31/21 04:00 96 31 H 106/56 L 87 L 05/31/21 03:00 89 23 H 127/82 90 L 05/31/21 02:00 98 31 H 114/59 L 88 L - Problem List & Annotations (1) Acute hypoxemic respiratory failure due to COVID-19 SNOMED Code(s): 119699347 Code(s): U07.1 - COVID-19; J96.01 - ACUTE RESPIRATORY FAILURE WITH HYPOXIA Status: Acute Current Visit: Yes (2) COVID SNOMED Code(s): 003428107 Code(s): U07.1 - COVID-19 Status: Acute Current Visit: Yes (3) HTN (hypertension) SNOMED Code(s): 33186285 Code(s): I10 - ESSENTIAL (PRIMARY) HYPERTENSION Status: Acute Current Visit: Yes (4) Diabetes mellitus SNOMED Code(s): 25231752 Code(s): E11.9 - TYPE 2 DIABETES MELLITUS WITHOUT COMPLICATIONS Status: Acute Current Visit: Yes - Problem List Review Problem List Initiated/Reviewed/Updated: Yes - My Orders Last 24 Hours: My Active Orders 05/30/21 20:25 Ambulate [RC] ASDIRECTED Ondansetron [Zofran] 4 mg IVPUSH Q4H PRN Resuscitation Status Routine 05/30/21 20:30 Oxygen Therapy [RC] PRN VTE/DVT Education [RC] PER UNIT ROUTINE Vital Signs [RC] Q1H 05/30/21 20:31 Antiembolic Devices [RC] PER UNIT ROUTINE Pulse Oximetry [RC] CONTINUOUS Sequential Compression Device [OM.PC] Per Unit Routine 05/30/21 20:32 RT Aerosol Therapy [RC] ASDIRECTED 05/30/21 20:36 Dextrose 50% in Water 50 ml IVPUSH ASDIRECTED PRN Glucagon,Human Recombinant [GlucaGen] 1 mg IM ASDIRECTED PRN 05/30/21 22:00 Albuterol/Ipratropium [DuoNeb 3.0-0.5 MG/3 ML] 3 ml NEB Q4HRRT 05/30/21 23:56 Ruffin Catheter Insertion [Insert Urinary Catheter] [OM.PC] Q24H 05/31/21 Breakfast ADA Diabetic [[employer] [employer] Diet] [DIET] 05/31/21 07:30 Insulin Aspart [NovoLOG] See Protocol SUBCUT TIDAC 05/31/21 09:00 Aspirin [Halfprin] 81 mg PO DAILY Lisinopril/Hydrochlorothiazide [Lisinopril-HCTZ 10-12.5 MG] 0.5 tab PO DAILY Pantoprazole [ProTONIX IV] 40 mg Sodium Chloride 0.9% [Normal Saline] 10 ml IV Q24H atorvaSTATin [Lipitor] 40 mg PO DAILY dexAMETHasone [Decadron] 6 mg IVPUSH DAILY 05/31/21 10:12 Echo Comp wo Cont [US] Routine 05/31/21 12:40 Enoxaparin [Lovenox] 90 mg SUBCUT BID 05/31/21 17:30 cefTRIAXone [Rocephin in Dextrose,Iso-Osm 1 GM/50 ML] 1 gm Premix Bag 1 bag IV Q24H 05/31/21 18:00 Azithromycin [Zithromax] 500 mg Sodium Chloride 0.9% [Normal Saline (AdvBag)] 250 ml IV Q24H 05/31/21 19:00 Remdesivir 100 mg Sodium Chloride 0.9% [Normal Saline] 100 ml IV Q24H - Plan Plan:: 71-year-old male admitted for acute hypoxic respiratory failure secondary to Covid pneumonia We will start patient on IV remdesivir, Decadron, Lovenox for DVT prophylaxis, Combivent as needed continue, Marta scheduled oxygen support via noninvasive ventilation cont patient on IV azithromycin and Rocephin, will order procalcitonin Patient has cardiomegaly, bilateral crackles there is a component of possible heart failure along with Covid, will give IV Lasix as tolerated, patient's blood pressure is on the softer side Will monitor closely Ruffin for close monitoring of ins and outs We will obtain 2D echo Keep magnesium more than 2 and potassium more than 4 IV Zofran for nausea IV PPI for ulcer prophylaxis Monitor and replete electrolytes as needed Guaifenesin for cough as needed Diabetic diet Sliding scale insulin incentive spirometry and proning Patient needs frequent redirection, will consider Precedex if delirium continues to escalate currently patient is being managed with IV Ativan as needed which he is tolerating well
[2021-05-31] MEDS ORDERED: Rocuronium Bromide 50 MG/5 ML Syringe ONE (16:02)
[2021-05-31] MEDS ORDERED: Lidocaine 2% 5 ML SDV ONE (16:02)
[2021-05-31] MEDS ORDERED: Propofol 200 MG/20 ML SDV ONE (16:03)
[2021-05-31] MEDS ORDERED: Midazolam 1 MG/ML 2 ML SDV ONE (16:03)
[2021-05-31] MEDS: cefTRIAXone 1 GM in Premix Bag 1 BAG IV SCH (16:55)
[2021-05-31] MEDS: Azithromycin 500 MG in Sodium Chloride 0.9% 250 ML IV SCH (17:55)
[2021-05-31] MEDS: REMDESIVIR 100 MG in Sodium Chloride 0.9% 100 ML IV SCH (19:01)
[2021-06-01] MEDS: Albuterol/Ipratropium 3.0-0.5 MG/3 ML Neb Soln NEB SCH ×6 (01:29→21:00)
[2021-06-01 06:51] LABS: BLOOD UREA NITROGEN,BUN 40 mg/dL (7.0-18.0); CARBON DIOXIDE,CO2 24.7 mmol/L (21.0-32.0); CHLORIDE,CL 99 mmol/L (98-107); GLUCOSE RANDOM 262 mg/dL (74-106); POTASSIUM,K 3.4 mmol/L (3.5-5.1); SODIUM,NA 140 mmol/L (136-148)
[2021-06-01] MEDS: Insulin Aspart 100 Units/ML 3 ML Pen SUBCUT SCH ×3 (08:17→17:09)
[2021-06-01] MEDS: Pantoprazole 40 MG in Sodium Chloride 0.9% 10 ML IV SCH (09:02)
[2021-06-01] MEDS: Dexamethasone 4 MG/ML SDV IVPUSH SCH (09:07)
[2021-06-01] MEDS: Lisinopril/Hydrochlorothiazide 10-12.5 MG Tab PO SCH (09:14)
[2021-06-01] MEDS: Aspirin 81 MG Tab.EC PO SCH (09:14)
[2021-06-01] MEDS: atorvaSTATin 40 MG Tab PO SCH (09:14)
[2021-06-01] MEDS: Enoxaparin 100 MG/1 ML Syringe SUBCUT SCH ×2 (09:21→21:00)
[2021-06-01] MEDS ORDERED: Lactated Ringers 250 ML IV ONE (11:46)
--- NOTE | 2021-06-01 13:17 | PN ---
[facility] Physician - Brief Progress [id number]/03/2021 13:08[facility] Karol duke, [place] - DENNISN (DENIA) - DENNISN JOSELYN CORLEY, Covid +Date of Service 06/01/2021 13:08H PI/Events of Note eICU Brief Progress [id number] admitted for hypoxemic respiratory failure attributed t o COVID, on NIV. Course has been complicated by delirium for which patient has been started on dexmed etomidine.Camera exam: Patient laying in bed, vitals monitor reviewed.eICU Recommendations:No new rec ommendations at this time, see prior note for further detailsIf patient unable to safely tolerate NIV recommend intubationContinue dexamethasone for a total of 10 days, remdesivir for 5 days.Suggest pro calcitonin to de-escalateInterventions Major-Respiratory failure - evaluation and managementElectroni ena Signed by: TAMANNA BHAKTA) on 06/01/2021 13:16
--- NOTE | 2021-06-01 14:33 | PCM.PN ---
- General Info Date of Service: 06/02/21 Admission Dx/Problem (Free Text): Admission Diagnosis/Problem Admission Diagnosis/Problem Hypoxia Subjective Update: Patient seen at bedside, patient is currently maxed out on Precedex drip, he is still very agitated and anxious, respiratory rate is in 30s, oxygenation is low 90s, patient continues to try to take the BiPAP off in spite of being on Precedex as well as getting as needed sedatives. Functional Status: Denies: Tolerating Diet, Ambulating, Urinating - Review of Systems Systems Review Comment:: Unable to obtain due to patient's clinical condition - Patient Data Vitals - Most Recent: Last Vital Signs Temp 36.0 C L 06/01/21 08:00 Pulse 88 05/31/21 07:00 Resp 42 H 06/01/21 13:00 BP 118/77 06/01/21 13:00 Pulse Ox 93 L 06/01/21 13:00 Weight - Most Recent: 88.2 kg I&O - Last 24 Hours: Intake & Output 05/31/21 06/01/21 06/01/21 22:59 06:59 14:59 Intake Total 400 450 Output Total 1280 600 Balance -880 -150 Lab Results Last 24 Hours: Laboratory Results - last 24 hr 05/31/21 06/01/21 06/01/21 Range/Units 17:07 05:36 05:36 WBC 13.77 H (4.0-11.0) K/uL RBC 5.06 (4.50-5.90) M/uL Hgb 15.2 (13.0-17.0) g/dL Hct 43.0 (38.0-50.0) % MCV 85.0 (80.0-98.0) fL MCH 30.0 (27.0-32.0) pg MCHC 35.3 (31.0-37.0) g/dL RDW Std Deviation 40.6 (28.0-62.0) fl RDW Coeff of Oscar 13 (11.0-15.0) % Plt Count 309 (150-400) K/uL MPV 10.80 (7.40-12.00) fL Neut % (Auto) 90.6 H (48.0-80.0) % Lymph % (Auto) 4.9 L (16.0-40.0) % Amador % (Auto) 4.2 (0.0-15.0) % Eos % (Auto) 0.1 (0.0-7.0) % Baso % (Auto) 0.2 (0.0-1.5) % Neut # (Auto) 12.5 H (1.4-5.7) K/uL Lymph # (Auto) 0.7 (0.6-2.4) K/uL Amador # (Auto) 0.6 (0.0-0.8) K/uL Eos # (Auto) 0.0 (0.0-0.7) K/uL Baso # (Auto) 0.0 (0.0-0.1) K/uL Nucleated RBC % 0.6 /100WBC Nucleated RBCs # 0 K/uL Sodium 140 (136-148) mmol/L Potassium 3.4 L (3.5-5.1) mmol/L Chloride 99 (98-107) mmol/L Carbon Dioxide 24.7 (21.0-32.0) mmol/L BUN 40 H (7.0-18.0) mg/dL Creatinine 0.8 (0.8-1.3) mg/dL Est Cr Clr Drug Dosing 79.18 mL/min Estimated GFR (MDRD) > 60.0 ml/min Glucose 262 H (74-106) mg/dL POC Glucose 331 H (70-99) mg/dL Calcium 8.5 (8.5-10.1) mg/dL Phosphorus 4.4 (2.6-4.7) mg/dL Magnesium 2.4 (1.8-2.4) mg/dL Total Bilirubin 0.6 (0.2-1.0) mg/dL AST 81 H (15-37) IU/L ALT 60 (14-63) IU/L Alkaline Phosphatase 156 H (46-116) U/L Total Protein 6.5 (6.4-8.2) g/dL Albumin 2.7 L (3.4-5.0) g/dL Globulin 3.8 (2.6-4.0) g/dL Albumin/Globulin Ratio 0.7 L (0.9-1.6) 06/01/21 06/01/21 Range/Units 06:26 11:39 WBC (4.0-11.0) K/uL RBC (4.50-5.90) M/uL Hgb (13.0-17.0) g/dL Hct (38.0-50.0) % MCV (80.0-98.0) fL MCH (27.0-32.0) pg MCHC (31.0-37.0) g/dL RDW Std Deviation (28.0-62.0) fl RDW Coeff of Oscar (11.0-15.0) % Plt Count (150-400) K/uL MPV (7.40-12.00) fL Neut % (Auto) (48.0-80.0) % Lymph % (Auto) (16.0-40.0) % Amador % (Auto) (0.0-15.0) % Eos % (Auto) (0.0-7.0) % Baso % (Auto) (0.0-1.5) % Neut # (Auto) (1.4-5.7) K/uL Lymph # (Auto) (0.6-2.4) K/uL Amador # (Auto) (0.0-0.8) K/uL Eos # (Auto) (0.0-0.7) K/uL Baso # (Auto) (0.0-0.1) K/uL Nucleated RBC % /100WBC Nucleated RBCs # K/uL Sodium (136-148) mmol/L Potassium (3.5-5.1) mmol/L Chloride (98-107) mmol/L Carbon Dioxide (21.0-32.0) mmol/L BUN (7.0-18.0) mg/dL Creatinine (0.8-1.3) mg/dL Est Cr Clr Drug Dosing mL/min Estimated GFR (MDRD) ml/min Glucose (74-106) mg/dL POC Glucose 283 H 295 H (70-99) mg/dL Calcium (8.5-10.1) mg/dL Phosphorus (2.6-4.7) mg/dL Magnesium (1.8-2.4) mg/dL Total Bilirubin (0.2-1.0) mg/dL AST (15-37) IU/L ALT (14-63) IU/L Alkaline Phosphatase (46-116) U/L Total Protein (6.4-8.2) g/dL Albumin (3.4-5.0) g/dL Globulin (2.6-4.0) g/dL Albumin/Globulin Ratio (0.9-1.6) Keny Results Last 24 Hours: Microbiology 05/30/21 17:48 Aerobic Blood Culture - Preliminary Blood - Venous - Lab Draw NO GROWTH AFTER 1 DAY Anaerobic Blood Culture - Preliminary NO GROWTH AFTER 1 DAY 05/30/21 17:28 Aerobic Blood Culture - Preliminary Blood - Venous NO GROWTH AFTER 1 DAY Anaerobic Blood Culture - Preliminary NO GROWTH AFTER 1 DAY Med Orders - Current: Current Medications Albuterol/Ipratropium (Albuterol/Ipratropium 3.0-0.5 Mg/3 Ml Neb Soln) 3 ml NEB Q4HRRT [facility] Last Admin: 06/01/21 09:22 Dose: 3 ml Documented by: Aspirin (Aspirin 81 Mg Tab.Ec) 81 mg PO DAILY [facility] Last Admin: 06/01/21 09:14 Dose: Not Given Documented by: Atorvastatin Calcium (Atorvastatin 40 Mg Tab) 40 mg PO DAILY [facility] Last Admin: 06/01/21 09:14 Dose: Not Given Documented by: Dexamethasone (Dexamethasone 4 Mg/Ml Sdv) 6 mg IVPUSH DAILY [facility] Last Admin: 06/01/21 09:07 Dose: 6 mg Documented by: Dextrose/Water (50% Dextrose In Water 50 Ml Syringe) 50 ml IVPUSH ASDIRECTED PRN PRN Reason: Hypoglycemia Enoxaparin Sodium (Enoxaparin 100 Mg/1 Ml Syringe) 90 mg SUBCUT BID [facility] Last Admin: 06/01/21 09:21 Dose: 90 mg Documented by: Glucagon (Glucagon,Human Recombinant 1 Mg Vial) 1 mg IM ASDIRECTED PRN PRN Reason: Hypoglycemia Lisinopril/HCTZ (Lisinopril/Hydrochlorothiazide 10-12.5 Mg Tab) 0.5 tab PO DAILY [facility] Last Admin: 06/01/21 09:14 Dose: Not Given Documented by: Remdesivir 100 mg/ Sodium (Chloride) 100 mls @ 100 mls/hr IV Q24H [facility] Stop: 06/03/21 19:59 Last Admin: 05/31/21 19:01 Dose: 100 mls/hr Documented by: Ceftriaxone Sodium/Dextrose 1 (gm/ Premix) 50 mls @ 100 mls/hr IV Q24H [facility] Last Admin: 05/31/21 16:55 Dose: 100 mls/hr Documented by: Azithromycin 500 mg/ Sodium (Chloride) 250 mls @ 250 mls/hr IV Q24H [facility] Last Admin: 05/31/21 17:55 Dose: 250 mls/hr Documented by: Pantoprazole Sodium 40 mg/ (Sodium Chloride) 10 mls @ 300 mls/hr IV Q24H [facility] Last Admin: 06/01/21 09:02 Dose: 300 mls/hr Documented by: Dexmedetomidine/Sodium (Chloride 400 mcg/ Premix) 100 mls @ 4.54 mls/hr IV TITRATE [facility]; Protocol Last Titration: 06/01/21 13:06 Dose: 1.4 mcg/kg/hr, 31.78 mls/hr Documented by: Vasopressin 100 units/ Sodium (Chloride) 100 mls @ 0.6 mls/hr IV TITRATE [facility]; Protocol Insulin Aspart (Insulin Aspart 100 Units/Ml 3 Ml Pen) 0 unit SUBCUT TIDAC [facility]; Protocol Last Admin: 06/01/21 11:42 Dose: 3 unit Documented by: Ondansetron HCl (Ondansetron 4 Mg/2 Ml Sdv) 4 mg IVPUSH Q4H PRN PRN Reason: Nausea/Vomiting Sodium Chloride (Sodium Chloride 0.9% 10 Ml Syringe) 10 ml FLUSH ASDIRECTED PRN PRN Reason: Keep Vein Open Last Admin: 05/30/21 17:39 Dose: 10 ml Documented by: Sodium Chloride (Sodium Chloride 0.9% 2.5 Ml Syringe) 2.5 ml FLUSH ASDIRECTED PRN PRN Reason: Keep Vein Open Last Admin: 05/30/21 17:39 Dose: 2.5 ml Documented by: Discontinued Medications Dexamethasone (Dexamethasone 10 Mg/Ml Sdv) 6 mg IVPUSH ONETIME ONE Stop: 05/30/21 17:31 Last Admin: 05/30/21 17:37 Dose: 6 mg Documented by: Diphenhydramine HCl (Diphenhydramine 50 Mg/Ml Sdv) 25 mg IVPUSH ONETIME ONE Stop: 05/31/21 01:01 Last Admin: 05/31/21 00:59 Dose: 25 mg Documented by: Diphenhydramine HCl (Diphenhydramine 50 Mg/Ml Sdv) 25 mg IVPUSH ONETIME ONE Stop: 05/31/21 15:03 Last Admin: 05/31/21 15:09 Dose: 25 mg Documented by: Enoxaparin Sodium (Enoxaparin 150 Mg/1 Ml Syringe) 150 mg SUBCUT ONETIME ONE Stop: 05/30/21 19:38 Last Admin: 05/30/21 19:45 Dose: 150 mg Documented by: Enoxaparin Sodium (Enoxaparin 40 Mg/0.4 Ml Syringe) 90 mg SUBCUT BID [facility] Last Admin: 05/31/21 12:39 Dose: Not Given Documented by: Furosemide (Furosemide 40 Mg/4 Ml Vial) 40 mg IVPUSH NOW ONE Stop: 05/30/21 23:57 Last Admin: 05/31/21 00:19 Dose: 40 mg Documented by: Furosemide (Furosemide 20 Mg/2 Ml Vial) 20 mg IVPUSH ONETIME ONE Stop: 05/31/21 10:12 Last Admin: 05/31/21 10:36 Dose: 20 mg Documented by: Haloperidol Lactate (Haloperidol Lactate 5 Mg/Ml Sdv) 2 mg IM ONETIME ONE Stop: 05/31/21 01:01 Last Admin: 05/31/21 00:56 Dose: 2 mg Documented by: Haloperidol Lactate (Haloperidol Lactate 5 Mg/Ml Sdv) 5 mg IM ONETIME ONE Stop: 05/31/21 15:04 Last Admin: 05/31/21 15:10 Dose: 5 mg Documented by: Ceftriaxone Sodium/Dextrose 1 (gm/ Premix) 50 mls @ 100 mls/hr IV ONETIME ONE Stop: 05/30/21 18:28 Last Admin: 05/30/21 18:34 Dose: 100 mls/hr Documented by: Azithromycin 500 mg/ Sodium (Chloride) 250 mls @ 250 mls/hr IV ONETIME [facility] Last Admin: 05/30/21 19:36 Dose: 250 mls/hr Documented by: Sodium Chloride (Normal Saline) 1,000 mls @ 250 mls/hr IV ONETIME ONE Stop: 05/30/21 22:59 Last Admin: 05/30/21 19:36 Dose: 250 mls/hr Documented by: Remdesivir 200 mg/ Sodium (Chloride) 250 mls @ 250 mls/hr IV ONETIME ONE Stop: 05/30/21 20:34 Last Admin: 05/30/21 22:54 Dose: 250 mls/hr Documented by: Lactated Ringer's (Ringers, Lactated) 250 mls @ 999 mls/hr IV .BOLUS ONE Stop: 06/01/21 12:01 Last Admin: 06/01/21 12:01 Dose: 999 mls/hr Documented by: Lidocaine (Lidocaine 2% 5 Ml Sdv) Confirm Administered Dose 5 ml .ROUTE .STK-MED ONE Stop: 05/31/21 16:03 Lorazepam (Lorazepam 2 Mg/Ml Sdv) 2 mg IVPUSH ONETIME ONE Stop: 05/30/21 22:14 Last Admin: 05/30/21 22:53 Dose: 2 mg Documented by: Lorazepam (Lorazepam 2 Mg/Ml Sdv) 2 mg IVPUSH ONETIME ONE Stop: 05/31/21 11:03 Last Admin: 05/31/21 14:46 Dose: 2 mg Documented by: Midazolam HCl (Midazolam 1 Mg/Ml 2 Ml Sdv) Confirm Administered Dose 2 mg .ROUTE .STK-MED ONE Stop: 05/31/21 16:04 Potassium Chloride (Potassium Chloride 20 Meq Tab.Er) 40 meq PO ONETIME ONE Stop: 05/31/21 09:28 Last Admin: 05/31/21 09:52 Dose: 40 meq Documented by: Propofol (Propofol 200 Mg/20 Ml Sdv) Confirm Administered Dose 200 mg .ROUTE .STK-MED ONE Stop: 05/31/21 16:04 Rocuronium Winfred (Rocuronium Winfred 50 Mg/5 Ml Syringe) Confirm Administered Dose 50 mg .ROUTE .STK-MED ONE Stop: 05/31/21 16:03 - Exam Quality Assessment: Supplemental Oxygen Urinary Catheter Total Time: 1Days 1Hours General: Moderate Distress. No: Alert, Oriented, Cooperative Lungs: Decreased Breath Sounds, Crackles, Rales Cardiovascular: Regular Rhythm, Tachycardia GI/Abdominal Exam: Normal Bowel Sounds, Soft, Non-Tender Extremities: Normal Inspection, Normal Range of Motion, Non-Tender, No Pedal Edema Skin: Warm, Dry Psy/Mental Status: Anxious, Agitated - Patient Data Lab Results Last 24 hrs: Laboratory Results - last 24 hr 05/31/21 06/01/21 06/01/21 Range/Units 17:07 05:36 05:36 WBC 13.77 H (4.0-11.0) K/uL RBC 5.06 (4.50-5.90) M/uL Hgb 15.2 (13.0-17.0) g/dL Hct 43.0 (38.0-50.0) % MCV 85.0 (80.0-98.0) fL MCH 30.0 (27.0-32.0) pg MCHC 35.3 (31.0-37.0) g/dL RDW Std Deviation 40.6 (28.0-62.0) fl RDW Coeff of Oscar 13 (11.0-15.0) % Plt Count 309 (150-400) K/uL MPV 10.80 (7.40-12.00) fL Neut % (Auto) 90.6 H (48.0-80.0) % Lymph % (Auto) 4.9 L (16.0-40.0) % Amador % (Auto) 4.2 (0.0-15.0) % Eos % (Auto) 0.1 (0.0-7.0) % Baso % (Auto) 0.2 (0.0-1.5) % Neut # (Auto) 12.5 H (1.4-5.7) K/uL Lymph # (Auto) 0.7 (0.6-2.4) K/uL Amador # (Auto) 0.6 (0.0-0.8) K/uL Eos # (Auto) 0.0 (0.0-0.7) K/uL Baso # (Auto) 0.0 (0.0-0.1) K/uL Nucleated RBC % 0.6 /100WBC Nucleated RBCs # 0 K/uL Sodium 140 (136-148) mmol/L Potassium 3.4 L (3.5-5.1) mmol/L Chloride 99 (98-107) mmol/L Carbon Dioxide 24.7 (21.0-32.0) mmol/L BUN 40 H (7.0-18.0) mg/dL Creatinine 0.8 (0.8-1.3) mg/dL Est Cr Clr Drug Dosing 79.18 mL/min Estimated GFR (MDRD) > 60.0 ml/min Glucose 262 H (74-106) mg/dL POC Glucose 331 H (70-99) mg/dL Calcium 8.5 (8.5-10.1) mg/dL Phosphorus 4.4 (2.6-4.7) mg/dL Magnesium 2.4 (1.8-2.4) mg/dL Total Bilirubin 0.6 (0.2-1.0) mg/dL AST 81 H (15-37) IU/L ALT 60 (14-63) IU/L Alkaline Phosphatase 156 H (46-116) U/L Total Protein 6.5 (6.4-8.2) g/dL Albumin 2.7 L (3.4-5.0) g/dL Globulin 3.8 (2.6-4.0) g/dL Albumin/Globulin Ratio 0.7 L (0.9-1.6) 06/01/21 06/01/21 Range/Units 06:26 11:39 WBC (4.0-11.0) K/uL RBC (4.50-5.90) M/uL Hgb (13.0-17.0) g/dL Hct (38.0-50.0) % MCV (80.0-98.0) fL MCH (27.0-32.0) pg MCHC (31.0-37.0) g/dL RDW Std Deviation (28.0-62.0) fl RDW Coeff of Oscar (11.0-15.0) % Plt Count (150-400) K/uL MPV (7.40-12.00) fL Neut % (Auto) (48.0-80.0) % Lymph % (Auto) (16.0-40.0) % Amador % (Auto) (0.0-15.0) % Eos % (Auto) (0.0-7.0) % Baso % (Auto) (0.0-1.5) % Neut # (Auto) (1.4-5.7) K/uL Lymph # (Auto) (0.6-2.4) K/uL Amador # (Auto) (0.0-0.8) K/uL Eos # (Auto) (0.0-0.7) K/uL Baso # (Auto) (0.0-0.1) K/uL Nucleated RBC % /100WBC Nucleated RBCs # K/uL Sodium (136-148) mmol/L Potassium (3.5-5.1) mmol/L Chloride (98-107) mmol/L Carbon Dioxide (21.0-32.0) mmol/L BUN (7.0-18.0) mg/dL Creatinine (0.8-1.3) mg/dL Est Cr Clr Drug Dosing mL/min Estimated GFR (MDRD) ml/min Glucose (74-106) mg/dL POC Glucose 283 H 295 H (70-99) mg/dL Calcium (8.5-10.1) mg/dL Phosphorus (2.6-4.7) mg/dL Magnesium (1.8-2.4) mg/dL Total Bilirubin (0.2-1.0) mg/dL AST (15-37) IU/L ALT (14-63) IU/L Alkaline Phosphatase (46-116) U/L Total Protein (6.4-8.2) g/dL Albumin (3.4-5.0) g/dL Globulin (2.6-4.0) g/dL Albumin/Globulin Ratio (0.9-1.6) Result Diagrams: 06/01/21 05:36 06/01/21 05:36 Keny Results Last 24 hrs: Microbiology 05/30/21 17:48 Aerobic Blood Culture - Preliminary Blood - Venous - Lab Draw NO GROWTH AFTER 1 DAY Anaerobic Blood Culture - Preliminary NO GROWTH AFTER 1 DAY 05/30/21 17:28 Aerobic Blood Culture - Preliminary Blood - Venous NO GROWTH AFTER 1 DAY Anaerobic Blood Culture - Preliminary NO GROWTH AFTER 1 DAY Sepsis Event Note - Evaluation Sepsis Screening Result: Possible Sepsis Risk - Focused Exam Vital Signs: Vital Signs Temp Resp BP Pulse Ox 06/01/21 13:00 42 H 118/77 93 L 06/01/21 12:00 40 H 107/72 93 L 06/01/21 11:00 33 H 114/72 91 L 06/01/21 10:00 36 H 99/60 90 L 06/01/21 09:00 19 122/68 97 06/01/21 08:00 36.0 C L 34 H 105/62 90 L 06/01/21 07:00 38 H 133/77 92 L 06/01/21 06:00 30 H 122/77 91 L 06/01/21 05:00 36.6 C 26 H 115/68 90 L 06/01/21 04:00 24 H 110/70 90 L 06/01/21 03:00 23 H 99/66 89 L - Problem List & Annotations (1) Acute hypoxemic respiratory failure due to COVID-19 SNOMED Code(s): 607545318 Code(s): U07.1 - COVID-19; J96.01 - ACUTE RESPIRATORY FAILURE WITH HYPOXIA Status: Acute Current Visit: Yes (2) COVID SNOMED Code(s): 496453723 Code(s): U07.1 - COVID-19 Status: Acute Current Visit: Yes (3) HTN (hypertension) SNOMED Code(s): 29166279 Code(s): I10 - ESSENTIAL (PRIMARY) HYPERTENSION Status: Acute Current Visit: Yes (4) Diabetes mellitus SNOMED Code(s): 27473026 Code(s): E11.9 - TYPE 2 DIABETES MELLITUS WITHOUT COMPLICATIONS Status: Acute Current Visit: Yes - Problem List Review Problem List Initiated/Reviewed/Updated: Yes - My Orders Last 24 Hours: My Active Orders 05/31/21 15:45 dexmedeTOMIDine in 0.9 % NaCL [Precedex] 400 mcg Premix Bag 1 bag IV TITRATE 05/31/21 17:30 cefTRIAXone [Rocephin in Dextrose,Iso-Osm 1 GM/50 ML] 1 gm Premix Bag 1 bag IV Q24H 05/31/21 18:00 Azithromycin [Zithromax] 500 mg Sodium Chloride 0.9% [Normal Saline (AdvBag)] 250 ml IV Q24H 05/31/21 19:00 Remdesivir 100 mg Sodium Chloride 0.9% [Normal Saline] 100 ml IV Q24H 05/31/21 23:15 Vasopressin 100 units Sodium Chloride 0.9% [Normal Saline] 95 ml IV TITRATE - Plan Plan:: 71-year-old male admitted for acute hypoxic respiratory failure secondary to Covid pneumonia cont. IV remdesivir, Decadron, Lovenox for DVT prophylaxis, DuoNebs scheduled oxygen support via noninvasive ventilation cont patient on IV azithromycin and Rocephin,procalcitonin pending Patient has cardiomegaly, 2D echo was done which shows EF of 65% Precedex drip has been started for delirium to help compliance with BiPAP Ruffin for close monitoring of ins and outs Keep magnesium more than 2 and potassium more than 4 IV Zofran for nausea IV PPI for ulcer prophylaxis Monitor and replete electrolytes as needed Guaifenesin for cough as needed Diabetic diet Sliding scale insulin incentive spirometry and proning Patient seems to be having worsening clinical status very low threshold for intubation if oxygen requirement increases or patient continues to be intolerant to BiPAP Increased Precedex will probably get was intubation
[2021-06-01] MEDS ORDERED: LORazepam 2 MG/ML SDV ONE (16:44)
[2021-06-01] MEDS ORDERED: Haloperidol Lactate 5 MG/ML SDV ONE (16:45)
[2021-06-01] MEDS ORDERED: diphenhydrAMINE 50 MG/ML SDV ONE (16:46)
[2021-06-01] MEDS: cefTRIAXone 1 GM in Premix Bag 1 BAG IV SCH (16:58)
[2021-06-01] MEDS: Azithromycin 500 MG in Sodium Chloride 0.9% 250 ML IV SCH (18:02)
[2021-06-01] MEDS: REMDESIVIR 100 MG in Sodium Chloride 0.9% 100 ML IV SCH (19:00)
[2021-06-01] MEDS ORDERED: Propofol 200 MG/20 ML SDV ONE (23:45)
[2021-06-01] MEDS ORDERED: Rocuronium Bromide 50 MG/5 ML Syringe ONE (23:45)
--- NOTE | 2021-06-02 00:05 | PCM.DCSUM1 ---
Discharge Summary - Hospital Course Free Text/Narrative:: 71-year-old male known COVID-19 infection diagnosed on May 22 presents for worsening shortness of breath. Patient has a past medical history of prediabetes, hypertension, hyperlipidemia. EMS was called as patient was having worsening shortness of breath and looking bad per his . On their arrival patient was with O2 sats in the 50s and unable to speak. 15 L nonrebreather mask was applied and patient's O2 sats improved to the high 80s and he was able to talk in short sentences. Denied chest pain. patient was started on BiPAP which improved his saturation further. Chest x-ray was obtained which showed severe cardiac enlargement, mild perihilar ground glass opacities noted bilaterally findings may be due to COVID-19 infection or pulmonary edema. Patient was given Decadron in the ER and also started on IV antibiotics for suspected bacterial pneumonia superimposed on Covid pneumonia. Lab work revealed leukocytosis of 15, mild YELENA, significantly elevated D-dimer and mild hyponatremia, CTA was not obtained as patient was not stable enough for CT and patient could not be weaned off to high flow to obtain imaging safely. Patient was given therapeutic dose of Lovenox and admitted to the ICU for further care. During my encounter patient was getting very anxious and claustrophobic with BiPAP, so settings were switched to CPAP patient still very anxious with the mask on states he feels very claustrophobic. Patient received 2 doses of IV lasix, (total 60 mg) Patient increasingly became delirious over night, patient received IM Haldol, IV Ativan to help with getting him calm to improve compliance with CPAP. Patients Fi02 requirement steadily went up. He was started on Precedex gtt, which caused temporary hypotension which later resolved without pressors. Patient switch to BIPAP, he was tachycardiac in 130s with RR in 30 to 40s intermittently. Patient was increasingly tiring out his respiratory muscles, his RR remained in 30s, Fi02 requirement went up to 90%, patient was maintaining 88 to 90%. Eventually upon several discussions with family about goals of care were established, patient was full code, , it was decided patient will be intubated as he was not tolerating BIPAP anymore. Patient was successfully intubated and was transferred to [facility] in [place] for higher level of care. Diagnosis: Stroke: No - Discharge Data Discharge Date: 06/01/21 Discharge Disposition: DC/Tfer to Acute Hospital 02 Condition: Fair - Referral to Home Health Primary Care Physician: PCP None - Discharge Diagnosis/Problem(s) (1) Acute hypoxemic respiratory failure due to COVID-19 SNOMED Code(s): 427250324 ICD Code: U07.1 - COVID-19; J96.01 - ACUTE RESPIRATORY FAILURE WITH HYPOXIA Status: Acute Current Visit: Yes (2) COVID SNOMED Code(s): 987888853 ICD Code: U07.1 - COVID-19 Status: Acute Current Visit: Yes (3) HTN (hypertension) SNOMED Code(s): 66700531 ICD Code: I10 - ESSENTIAL (PRIMARY) HYPERTENSION Status: Acute Current Visit: Yes (4) Diabetes mellitus SNOMED Code(s): 15765864 ICD Code: E11.9 - TYPE 2 DIABETES MELLITUS WITHOUT COMPLICATIONS Status: Acute Current Visit: Yes - Patient Instructions Diet: NPO - Discharge Plan *PRESCRIPTION DRUG MONITORING PROGRAM REVIEWED*: Not Applicable *COPY OF PRESCRIPTION DRUG MONITORING REPORT IN PATIENT STEPHEN: Not Applicable Home Medications: Home Meds Aspirin [Vazalore] 81 mg PO DAILY 05/30/21 [History] Empagliflozin [Jardiance] 25 mg PO DAILY 05/30/21 [History] Lisinopril/Hydrochlorothiazide [Lisinopril-HCTZ 10-12.5 MG] 10 - 12.5 mg PO DAILY 05/30/21 [History] Naproxen 250 mg PO Q6H 05/30/21 [History] Pioglitazone [Actos] 30 mg PO DAILY 05/30/21 [History] atorvaSTATin [Lipitor] 40 mg PO DAILY 05/30/21 [History] Triamcinolone Acetonide [Triamcinolone Acetonide 0.1% Oint] 1 applic TOP BID PRN 05/31/21 [History] metFORMIN HCl [Metformin HCl] 1,000 mg PO BIDMEALS 05/31/21 [History] Forms: ED Department Discharge Referrals: PCP,None [Primary Care Provider] - - Discharge Summary/Plan Comment DC Time >30 min.: Yes Total # of Minutes for Discharge Time: 1 hour - Patient Data Vitals - Most Recent: Last Vital Signs Temp 36.0 C L 06/01/21 08:00 Pulse 88 05/31/21 07:00 Resp 34 H 06/01/21 20:00 BP 126/77 06/01/21 20:00 Pulse Ox 91 L 06/01/21 20:31 Weight - Most Recent: 88.2 kg I&O - Last 24 hours: Intake & Output 06/01/21 06/01/21 06/02/21 14:59 22:59 06:59 Intake Total 0 Output Total 500 Balance -500 Lab Results - Last 24 hrs: Laboratory Results - last 24 hr 06/01/21 06/01/21 06/01/21 Range/Units 05:36 05:36 06:26 WBC 13.77 H (4.0-11.0) K/uL RBC 5.06 (4.50-5.90) M/uL Hgb 15.2 (13.0-17.0) g/dL Hct 43.0 (38.0-50.0) % MCV 85.0 (80.0-98.0) fL MCH 30.0 (27.0-32.0) pg MCHC 35.3 (31.0-37.0) g/dL RDW Std Deviation 40.6 (28.0-62.0) fl RDW Coeff of Oscar 13 (11.0-15.0) % Plt Count 309 (150-400) K/uL MPV 10.80 (7.40-12.00) fL Neut % (Auto) 90.6 H (48.0-80.0) % Lymph % (Auto) 4.9 L (16.0-40.0) % Alcorn % (Auto) 4.2 (0.0-15.0) % Eos % (Auto) 0.1 (0.0-7.0) % Baso % (Auto) 0.2 (0.0-1.5) % Neut # (Auto) 12.5 H (1.4-5.7) K/uL Lymph # (Auto) 0.7 (0.6-2.4) K/uL Alcorn # (Auto) 0.6 (0.0-0.8) K/uL Eos # (Auto) 0.0 (0.0-0.7) K/uL Baso # (Auto) 0.0 (0.0-0.1) K/uL Nucleated RBC % 0.6 /100WBC Nucleated RBCs # 0 K/uL Sodium 140 (136-148) mmol/L Potassium 3.4 L (3.5-5.1) mmol/L Chloride 99 (98-107) mmol/L Carbon Dioxide 24.7 (21.0-32.0) mmol/L BUN 40 H (7.0-18.0) mg/dL Creatinine 0.8 (0.8-1.3) mg/dL Est Cr Clr Drug Dosing 79.18 mL/min Estimated GFR (MDRD) > 60.0 ml/min Glucose 262 H (74-106) mg/dL POC Glucose 283 H (70-99) mg/dL Calcium 8.5 (8.5-10.1) mg/dL Phosphorus 4.4 (2.6-4.7) mg/dL Magnesium 2.4 (1.8-2.4) mg/dL Total Bilirubin 0.6 (0.2-1.0) mg/dL AST 81 H (15-37) IU/L ALT 60 (14-63) IU/L Alkaline Phosphatase 156 H (46-116) U/L Total Protein 6.5 (6.4-8.2) g/dL Albumin 2.7 L (3.4-5.0) g/dL Globulin 3.8 (2.6-4.0) g/dL Albumin/Globulin Ratio 0.7 L (0.9-1.6) 06/01/21 06/01/21 Range/Units 11:39 17:07 WBC (4.0-11.0) K/uL RBC (4.50-5.90) M/uL Hgb (13.0-17.0) g/dL Hct (38.0-50.0) % MCV (80.0-98.0) fL MCH (27.0-32.0) pg MCHC (31.0-37.0) g/dL RDW Std Deviation (28.0-62.0) fl RDW Coeff of Oscar (11.0-15.0) % Plt Count (150-400) K/uL MPV (7.40-12.00) fL Neut % (Auto) (48.0-80.0) % Lymph % (Auto) (16.0-40.0) % Alcorn % (Auto) (0.0-15.0) % Eos % (Auto) (0.0-7.0) % Baso % (Auto) (0.0-1.5) % Neut # (Auto) (1.4-5.7) K/uL Lymph # (Auto) (0.6-2.4) K/uL Alcorn # (Auto) (0.0-0.8) K/uL Eos # (Auto) (0.0-0.7) K/uL Baso # (Auto) (0.0-0.1) K/uL Nucleated RBC % /100WBC Nucleated RBCs # K/uL Sodium (136-148) mmol/L Potassium (3.5-5.1) mmol/L Chloride (98-107) mmol/L Carbon Dioxide (21.0-32.0) mmol/L BUN (7.0-18.0) mg/dL Creatinine (0.8-1.3) mg/dL Est Cr Clr Drug Dosing mL/min Estimated GFR (MDRD) ml/min Glucose (74-106) mg/dL POC Glucose 295 H 284 H (70-99) mg/dL Calcium (8.5-10.1) mg/dL Phosphorus (2.6-4.7) mg/dL Magnesium (1.8-2.4) mg/dL Total Bilirubin (0.2-1.0) mg/dL AST (15-37) IU/L ALT (14-63) IU/L Alkaline Phosphatase (46-116) U/L Total Protein (6.4-8.2) g/dL Albumin (3.4-5.0) g/dL Globulin (2.6-4.0) g/dL Albumin/Globulin Ratio (0.9-1.6) SAM Results - Last 24 hrs: Microbiology 05/30/21 17:48 Aerobic Blood Culture - Preliminary Blood - Venous - Lab Draw NO GROWTH AFTER 2 DAYS Anaerobic Blood Culture - Preliminary NO GROWTH AFTER 2 DAYS 05/30/21 17:28 Aerobic Blood Culture - Preliminary Blood - Venous NO GROWTH AFTER 2 DAYS Anaerobic Blood Culture - Preliminary NO GROWTH AFTER 2 DAYS Med Orders - Current: Current Medications Albuterol/Ipratropium (Albuterol/Ipratropium 3.0-0.5 Mg/3 Ml Neb Soln) 3 ml NEB Q4HRRT [facility] Last Admin: 06/01/21 21:00 Dose: 3 ml Documented by: Aspirin (Aspirin 81 Mg Tab.Ec) 81 mg PO DAILY [facility] Last Admin: 06/01/21 09:14 Dose: Not Given Documented by: Atorvastatin Calcium (Atorvastatin 40 Mg Tab) 40 mg PO DAILY [facility] Last Admin: 06/01/21 09:14 Dose: Not Given Documented by: Dexamethasone (Dexamethasone 4 Mg/Ml Sdv) 6 mg IVPUSH DAILY [facility] Last Admin: 06/01/21 09:07 Dose: 6 mg Documented by: Dextrose/Water (50% Dextrose In Water 50 Ml Syringe) 50 ml IVPUSH ASDIRECTED PRN PRN Reason: Hypoglycemia Enoxaparin Sodium (Enoxaparin 100 Mg/1 Ml Syringe) 90 mg SUBCUT BID [facility] Last Admin: 06/01/21 21:00 Dose: 90 mg Documented by: Glucagon (Glucagon,Human Recombinant 1 Mg Vial) 1 mg IM ASDIRECTED PRN PRN Reason: Hypoglycemia Lisinopril/HCTZ (Lisinopril/Hydrochlorothiazide 10-12.5 Mg Tab) 0.5 tab PO DAILY [facility] Last Admin: 06/01/21 09:14 Dose: Not Given Documented by: Remdesivir 100 mg/ Sodium (Chloride) 100 mls @ 100 mls/hr IV Q24H [facility] Stop: 06/03/21 19:59 Last Admin: 06/01/21 19:00 Dose: 100 mls/hr Documented by: Ceftriaxone Sodium/Dextrose 1 (gm/ Premix) 50 mls @ 100 mls/hr IV Q24H [facility] Last Admin: 06/01/21 16:58 Dose: 100 mls/hr Documented by: Azithromycin 500 mg/ Sodium (Chloride) 250 mls @ 250 mls/hr IV Q24H [facility] Last Admin: 06/01/21 18:02 Dose: 250 mls/hr Documented by: Pantoprazole Sodium 40 mg/ (Sodium Chloride) 10 mls @ 300 mls/hr IV Q24H [facility] Last Admin: 06/01/21 09:02 Dose: 300 mls/hr Documented by: Dexmedetomidine/Sodium (Chloride 400 mcg/ Premix) 100 mls @ 4.54 mls/hr IV TITRATE [facility]; Protocol Last Admin: 06/01/21 18:02 Dose: 1.4 mcg/kg/hr, 31.78 mls/hr Documented by: Vasopressin 100 units/ Sodium (Chloride) 100 mls @ 0.6 mls/hr IV TITRATE [facility]; Protocol Insulin Aspart (Insulin Aspart 100 Units/Ml 3 Ml Pen) 0 unit SUBCUT TIDAC [facility]; Protocol Last Admin: 06/01/21 17:09 Dose: 3 unit Documented by: Ondansetron HCl (Ondansetron 4 Mg/2 Ml Sdv) 4 mg IVPUSH Q4H PRN PRN Reason: Nausea/Vomiting Sodium Chloride (Sodium Chloride 0.9% 10 Ml Syringe) 10 ml FLUSH ASDIRECTED PRN PRN Reason: Keep Vein Open Last Admin: 05/30/21 17:39 Dose: 10 ml Documented by: Sodium Chloride (Sodium Chloride 0.9% 2.5 Ml Syringe) 2.5 ml FLUSH ASDIRECTED PRN PRN Reason: Keep Vein Open Last Admin: 05/30/21 17:39 Dose: 2.5 ml Documented by: Discontinued Medications Dexamethasone (Dexamethasone 10 Mg/Ml Sdv) 6 mg IVPUSH ONETIME ONE Stop: 05/30/21 17:31 Last Admin: 05/30/21 17:37 Dose: 6 mg Documented by: Diphenhydramine HCl (Diphenhydramine 50 Mg/Ml Sdv) 25 mg IVPUSH ONETIME ONE Stop: 05/31/21 01:01 Last Admin: 05/31/21 00:59 Dose: 25 mg Documented by: Diphenhydramine HCl (Diphenhydramine 50 Mg/Ml Sdv) 25 mg IVPUSH ONETIME ONE Stop: 05/31/21 15:03 Last Admin: 05/31/21 15:09 Dose: 25 mg Documented by: Diphenhydramine HCl (Diphenhydramine 50 Mg/Ml Sdv) Confirm Administered Dose 50 mg .ROUTE .STK-MED ONE Stop: 06/01/21 16:47 Last Admin: 06/01/21 16:55 Dose: 50 mg Documented by: Enoxaparin Sodium (Enoxaparin 150 Mg/1 Ml Syringe) 150 mg SUBCUT ONETIME ONE Stop: 05/30/21 19:38 Last Admin: 05/30/21 19:45 Dose: 150 mg Documented by: Enoxaparin Sodium (Enoxaparin 40 Mg/0.4 Ml Syringe) 90 mg SUBCUT BID [facility] Last Admin: 05/31/21 12:39 Dose: Not Given Documented by: Furosemide (Furosemide 40 Mg/4 Ml Vial) 40 mg IVPUSH NOW ONE Stop: 05/30/21 23:57 Last Admin: 05/31/21 00:19 Dose: 40 mg Documented by: Furosemide (Furosemide 20 Mg/2 Ml Vial) 20 mg IVPUSH ONETIME ONE Stop: 05/31/21 10:12 Last Admin: 05/31/21 10:36 Dose: 20 mg Documented by: Haloperidol Lactate (Haloperidol Lactate 5 Mg/Ml Sdv) 2 mg IM ONETIME ONE Stop: 05/31/21 01:01 Last Admin: 05/31/21 00:56 Dose: 2 mg Documented by: Haloperidol Lactate (Haloperidol Lactate 5 Mg/Ml Sdv) 5 mg IM ONETIME ONE Stop: 05/31/21 15:04 Last Admin: 05/31/21 15:10 Dose: 5 mg Documented by: Haloperidol Lactate (Haloperidol Lactate 5 Mg/Ml Sdv) Confirm Administered Dose 5 mg .ROUTE .STK-MED ONE Stop: 06/01/21 16:46 Last Admin: 06/01/21 16:49 Dose: 5 mg Documented by: Ceftriaxone Sodium/Dextrose 1 (gm/ Premix) 50 mls @ 100 mls/hr IV ONETIME ONE Stop: 05/30/21 18:28 Last Admin: 05/30/21 18:34 Dose: 100 mls/hr Documented by: Azithromycin 500 mg/ Sodium (Chloride) 250 mls @ 250 mls/hr IV ONETIME [facility] Last Admin: 05/30/21 19:36 Dose: 250 mls/hr Documented by: Sodium Chloride (Normal Saline) 1,000 mls @ 250 mls/hr IV ONETIME ONE Stop: 05/30/21 22:59 Last Admin: 05/30/21 19:36 Dose: 250 mls/hr Documented by: Remdesivir 200 mg/ Sodium (Chloride) 250 mls @ 250 mls/hr IV ONETIME ONE Stop: 05/30/21 20:34 Last Admin: 05/30/21 22:54 Dose: 250 mls/hr Documented by: Lactated Ringer's (Ringers, Lactated) 250 mls @ 999 mls/hr IV .BOLUS ONE Stop: 06/01/21 12:01 Last Admin: 06/01/21 12:01 Dose: 999 mls/hr Documented by: Lidocaine (Lidocaine 2% 5 Ml Sdv) Confirm Administered Dose 5 ml .ROUTE .STK-MED ONE Stop: 05/31/21 16:03 Lorazepam (Lorazepam 2 Mg/Ml Sdv) 2 mg IVPUSH ONETIME ONE Stop: 05/30/21 22:14 Last Admin: 05/30/21 22:53 Dose: 2 mg Documented by: Lorazepam (Lorazepam 2 Mg/Ml Sdv) 2 mg IVPUSH ONETIME ONE Stop: 05/31/21 11:03 Last Admin: 05/31/21 14:46 Dose: 2 mg Documented by: Lorazepam (Lorazepam 2 Mg/Ml Sdv) Confirm Administered Dose 2 mg .ROUTE .ST-MED ONE Stop: 06/01/21 16:45 Last Admin: 06/01/21 16:48 Dose: 2 mg Documented by: Midazolam HCl (Midazolam 1 Mg/Ml 2 Ml Sdv) Confirm Administered Dose 2 mg .ROUTE .ST-MED ONE Stop: 05/31/21 16:04 Potassium Chloride (Potassium Chloride 20 Meq Tab.Er) 40 meq PO ONETIME ONE Stop: 05/31/21 09:28 Last Admin: 05/31/21 09:52 Dose: 40 meq Documented by: Propofol (Propofol 200 Mg/20 Ml Sdv) Confirm Administered Dose 200 mg .ROUTE .STK-MED ONE Stop: 05/31/21 16:04 Propofol (Propofol 200 Mg/20 Ml Sdv) Confirm Administered Dose 200 mg .ROUTE .STK-MED ONE Stop: 06/01/21 23:46 Rocuronium Vance (Rocuronium Vance 50 Mg/5 Ml Syringe) Confirm Administered Dose 50 mg .ROUTE .STK-MED ONE Stop: 05/31/21 16:03 Rocuronium Vance (Rocuronium Vance 50 Mg/5 Ml Syringe) Confirm Administered Dose 50 mg .ROUTE .STK-MED ONE Stop: 06/01/21 23:46 Succinylcholine Chloride (Succinylcholine Chloride 200 Mg/10 Ml Syr) Confirm Administered Dose 200 mg .ROUTE .STK-MED ONE Stop: 06/01/21 23:46
--- NOTE | 2021-06-02 00:16 | PCM.PRNOTE ---
- Free Text/Narrative Note: Anes Note I was called to perform emergency intubation. 2355 PreO2 X 3 min with ambu bag. 2358 Intubated with ease single attempt using Glidescope #3 blade. 8.0 et tube passed with ease. Drugs used 100 mg anectine plus 200 mg propofol. 2305 50 mg rocuronium given. Geoffrey well. time with patiet [id number] Jaciel Oakley ENGINEERING PROFESSOR
[2021-06-02] MEDS ORDERED: propofoL 100 ML IV SCH (00:30)
--- NOTE | 2021-06-02 01:00 | CR ---
Indication: Intubation Technique: Chest 1 view Comparison: May 30, 2021 Findings/Impression: Endotracheal tube tip terminates just above the level of the cheryl and should be retracted approximately 3 cm. Diffuse patchy opacities may represent infection or edema. Stable cardiac size. No pneumothorax. No acute osseous abnormality. Dictated by Marcy Valdez MD @ 06/02/2021 12:59:20 AM (Electronically Signed)
--- NOTE | 2021-06-02 01:02 | CR ---
Indication: Endotracheal tube adjustment Technique: Chest 1 view Comparison: No same date at 12:33 a.m. ne Findings/Impression: Endotracheal tube tip now terminates 3.3 cm above the level of the cheryl. Remainder of the exam is unchanged compared to the prior study. Dictated by Marcy Valdez MD @ 06/02/2021 1:00:13 AM (Electronically Signed)
[2021-06-02] MEDS ORDERED: Insulin Aspart 100 Units/ML 3 ML Pen SUBCUT SCH (01:15)
[2021-06-02] MEDS: Albuterol/Ipratropium 3.0-0.5 MG/3 ML Neb Soln NEB SCH (02:45)
--- NOTE | 2021-06-05 12:58 | ECHO ---
EXAM DATE: 05/30/21 PATIENT'S AGE: 71 The ECHO report has been scanned into [email or web address] and can be seen in this patient's EMR (Electronic Medical Record) under the REPORTS section. The report has also been scanned into PACS. ROBB
== END 2021-06-02 01:00 | DRG 137 ==
LOC: MW.ED 17:25 → MW.ICU 20:05
PROVIDERS: ADMIT Student in an Organized Health Care Education/Training Program; ATTEND Student in an Organized Health Care Education/Training Program
PROC: 5A09457 Assistance with Respiratory Ventilation, 24-96 Consecutive Hours, Continuous Positive Airway Pressure (ICD-10-PCS; 2021-05-30)
PROC: XW033E5 Introduction of Remdesivir Anti-infective into Peripheral Vein, Percutaneous Approach, New Technology Group 5 (ICD-10-PCS; 2021-05-30)
PROC: 3E0333Z Introduction of Anti-inflammatory into Peripheral Vein, Percutaneous Approach (ICD-10-PCS; 2021-05-30)
PROC: 0BH18EZ Insertion of Endotracheal Airway into Trachea, Via Natural or Artificial Opening Endoscopic (ICD-10-PCS; principal; 2021-06-02)
PROC: 5A1935Z Respiratory Ventilation, Less than 24 Consecutive Hours (ICD-10-PCS; 2021-06-02)
DX: U07.1 COVID-19 (principal); J12.82 Pneumonia due to coronavirus disease 2019; J15.9 Unspecified bacterial pneumonia; E87.1 Hypo-osmolality and hyponatremia; J96.01 Acute respiratory failure with hypoxia; N17.9 Acute kidney failure, unspecified; I11.0 Hypertensive heart disease with heart failure; I50.9 Heart failure, unspecified; G93.40 Encephalopathy, unspecified; Z79.82 Long term (current) use of aspirin; Z79.84 Long term (current) use of oral hypoglycemic drugs; Z79.899 Other long term (current) drug therapy
CPT/HCPCS: 36415; 36600; 51702; 71045; 71045-26; 80053; 81001; 82803; 82947; 83036; 83605; 83735; 83880; 84100; 84145; 84484; 85025; 85379; 85610; 85730; 86140; 87040; 93005; 93306; 94640; 94660; 96365; 96367; 96372; 96375; 99285-25; A9270-GY; C9113; J0330; J0456; J0696; J1100; J1200; J1630; J1650; J1815-GY; J1940; J2060; J2250; J2704; J7030; J7050; J7120; J7620-GY